=== PATIENT | female | born 1985 | race Caucasian/White ===

== ENCOUNTER 2016-11-11 19:54 | Emergency (ER) | payer MEDICAID ==
[2013-01-30 12:09] VITALS: BMI 69.7
[~2016-11-11 19:54] MED LIST: ABILIFY10 MG PO; CELEXA20 MG PO; CIPRO500 MG PO; HYDROCHLOROTHIA25 MG PO; KEFLEX500 MG PO; LOPRESSOR50 MG PO; NORCO 10/325 TA1 TA1 PO; ZESTRIL40 MG PO
[2016-11-11 21:01] LABS: BASOPHILS 0.1 % (0-2); EOSINOPHILS 2.7 % (0-7); HEMATOCRIT 35.3 % (36.0-48.0); HEMOGLOBIN 9.9 g/dL (12-16); IMMATURE GRANULOCYTES 0.2 % (0-5); LYMPHOCYTES 21.6 % (15-50); MCH 21.8 pg (26.0-34.0); MCV 77.6 fL (80.0-100.0); MEAN PLATELET VOLUME 10.9 fL (7.4-10.4); MONOCYTES 4.7 % (2-11); NEUTROPHILS 70.7 % (40-80); RBC 4.55 10x6/uL (4.00-5.40); WBC 8.6 10x3/uL (4.8-10.8)
[2016-11-11 21:03] LABS: PLATELET COUNT 243 10x3/uL (130-400)
[2016-11-11 21:28] LABS: ALKALINE PHOSPHATASE 136 U/L (46-116); ALT (SGPT) 17 U/L (10-68); BILIRUBIN - TOTAL 0.26 mg/dL (0.2-1.3); CALC OSMOLALITY 290 mosm/kg (275-300); CALCIUM 8.2 mg/dL (8.5-10.1); CARBON DIOXIDE 28.2 mmol/L (21.0-32.0); CHLORIDE - SERUM 105 mmol/L (98-107); CREATININE - SERUM 0.8 mg/dL (0.6-1.3); GLUCOSE 129 mg/dL (74-106); POTASSIUM - SERUM 3.6 mmol/L (3.5-5.1); PROTEIN - SERUM 7.4 g/dL (6.4-8.2); SODIUM 144 mmol/L (136-145); UREA NITROGEN 18 mg/dL (7-18); eGFR NON AFRICAN AMERICAN 87 mL/min (90-120)
== END 2016-11-11 21:05 | disposition home or self-care (01) ==
LOC: D.ER 19:54
PROVIDERS: Physician Assistant Medical
DX: L03.116 Cellulitis of left lower limb (principal); I83.228 Varicose veins of left lower extremity with both ulcer of other part of lower extremity and inflammation

== ENCOUNTER 2016-11-17 21:21 | Emergency (ER) | payer MEDICAID ==
[2013-01-30 12:09] VITALS: BMI 69.7
== END 2016-11-17 22:27 | disposition home or self-care (01) ==
LOC: D.ER 21:21
DX: I83.028 Varicose veins of left lower extremity with ulcer other part of lower leg (principal); L03.116 Cellulitis of left lower limb; I10 Essential (primary) hypertension; E11.9 Type 2 diabetes mellitus without complications

== ENCOUNTER → 2019-08-20 10:05 | Outpatient (CLI) | payer OTHER ==
[2013-01-30 12:09] VITALS: BMI 69.7
--- NOTE | 2019-08-22 08:48 | EC ---
PATIENT:NABILA BRIGHT DATE OF SERVICE: 08/20/19 SEX: F MEDICAL RECORD: [id number] DATE OF : 81 [facility] AGE OF PATIENT: 34 ADMISSION DATE: 08/20/19 REFERRING PHYSICIAN: INTERPRETING PHYSICIAN: ELOISA MCCLURE MD ECHOCARDIOGRAM REPORT ECHO CHARGES 4 ECHO COMPLETE Date: 08/20/19 CLINICAL DIAGNOSIS: PULMONARY HTN/CHF H/O HTN ECHOCARDIOGRAPHIC MEASUREMENTS (adult normal given) AC root (d.<3.7cm) 3.0 cm LV Septum d (<1.2 cm> 1.3 cm Valve Excursion 1.0 cm LV Septum (systole) 1.7 cm Left Atria (s.<4.0cm> 3.6 cm LVPW d(<1.2cm) 1.3 cm RV (d.<2.3cm) 3.9 cm LVPW (sytole) 1.6 cm LV diastole(<5.6CM) 6.4 cm MV E-F(>70mm/sec) cm LV systole 4.8 cm LVOT Diameter 2.3 cm MV exc.(>10mm) cm Est.ejection fraction (50-75%) % DOPPLER: LVIT cm/sec A 69.0 cm/sec E 93.0 cm/sec LA cm/sec RVSP 63.2 mmHg LVOT 110 cm/sec AOP1/2T m/s Asc. Ao 196 cm/sec RVOT 110 cm/sec RA cm/sec PA 137 cm/sec AV Gradient Peak 15.4 mmHg AV Mean 8.5 mmHg AV Area 2.0 cm MV Gradient Peak 5.6 mmHg MV Mean 2.1 mmHg MV Area cm COMMENTS: OP - HC Oracle Applications Analyst: Jayjay DESOUZA ANGELA Firmware Manager: 3 Dr. Tobias TAPE# PACS Pericardial Effusion N DATE OF SERVICE: Adequate 2D, color flow imaging, spectral Doppler, and M-Mode. Mild LVH. LV internal dimension is normal. Wall motion is normal. EF is greater than or equal to 55%. Aortic valve is tricuspid. No evidence of stenosis by Doppler interrogation. Left atrium is normal at 3.6 cm. Mitral valve shows no prolapse. Trace MR. Right-sided chambers are grossly normal. Trace to mild TR with color flow imaging. ECHOCARDIOGRAM REPORT [id number] NABILA BRIGHT TRANSINT:[id number] Voice Confirmation ID: [id number] DOCUMENT ID: [id number] ELOISA MCCLURE MD at 0848 CC: [id number] DICTATION DATE: 08/21/191534 MAINFRAME ANALYST: 08/21/19 2216 DEP CLI 08/20/19 [place] [id number] [place] [id number]
== END | disposition home or self-care (01) ==
LOC: D.HCCECHO 10:05
PROVIDERS: ATTEND Internal Medicine Interventional Cardiology
DX: I10 Essential (primary) hypertension (principal)

== ENCOUNTER 2020-09-07 12:50 | Inpatient (IN) | payer OTHER ==
[~2020-09-07] VITALS: Ht 160 cm; Wt 196.9 kg
[2020-09-07] MEDS ORDERED: PROAIR HFA8.5 G1 INH (13:00)
[2020-09-07] MEDS ORDERED: HYDROCODON-ACE1 EA10 PO (13:00)
[2020-09-07] MEDS ORDERED: ADVIL200 MG PO (13:00)
[2020-09-07 13:43] LABS: BASOPHILS 0.1 % (0-2); EOSINOPHILS 0.3 % (0-7); HEMATOCRIT 32.5 % (36.0-48.0); IMMATURE GRANULOCYTES 0.3 % (0-5); LYMPHOCYTE ABS# 0.74 10x3/uL (1.18-3.74); LYMPHOCYTES 6.6 % (15-50); MCH 25.2 pg (26.0-34.0); MCHC 27.7 g/dL (31.0-37.0); MONOCYTES 3.9 % (2-11); NEUTROPHIL ABS# 9.98 10x3/uL (1.56-6.13); NEUTROPHILS 88.8 % (40-80); RBC 3.57 10x6/uL (4.00-5.40); RDW 15.7 % (11.5-14.5); WBC 11.2 10x3/uL (4.8-10.8)
[2020-09-07 13:51] LABS: CALC OSMOLALITY 297 mosm/kg (275-300); CHLORIDE - SERUM 106 mmol/L (98-107); CREATININE - SERUM 2.4 mg/dL (0.6-1.3); GLUCOSE 138 mg/dL (74-106); POTASSIUM - SERUM 3.8 mmol/L (3.5-5.1); SODIUM 142 mmol/L (136-145); UREA NITROGEN 49 mg/dL (7-18); eGFR NON AFRICAN AMERICAN 24 mL/min (90-120)
[2020-09-07 13:56] LABS: PLATELET COUNT 182 10x3/uL (130-400)
[2020-09-07 14:08] LABS: ALBUMIN 2.7 g/dL (3.4-5.0); ALKALINE PHOSPHATASE 106 U/L (30-120); ALT (SGPT) 14 U/L (10-68); BILIRUBIN - TOTAL 0.24 mg/dL (0.2-1.3); CKMB 1.2 U/L (0.0-3.6); CREATINE KINASE 52 UL (21-215); PRO BNP 794 pg/mL (0-125); PROTEIN - SERUM 7.2 g/dL (6.4-8.2); TROPONIN-I < 0.017 ng/mL (0.000-0.060)
[2020-09-07 14:09] LABS: APTT 25.9 SECONDS (22.8-39.4); INR 1.13 (0.85-1.17); PROTIME 13.5 SECONDS (11.6-15.0)
[2020-09-07 14:17] LABS: SARS-CoV-2 ANTIGEN NEGATIVE- SARS-COV-2 (NEGATIVE)
[2020-09-07 15:24] LABS: BILIRUBIN NEGATIVE (NEGATIVE); KETONE NEGATIVE (NEGATIVE); NITRITE NEGATIVE (NEGATIVE); UROBILINOGEN NORMAL mg/dL (< 2)
[2020-09-07 15:26] LABS: WHITE CELLS - URINE 0-5 HPF (0-4)
[2020-09-07 15:27] LABS: BACTERIA MANY HPF (NONE SEEN); HCG URINE NEGATIVE (NEGATIVE)
[2020-09-07 19:18] LABS: CKMB 1.3 U/L (0.0-3.6); CREATINE KINASE 47 UL (21-215); TROPONIN-I < 0.017 ng/mL (0.000-0.060)
--- NOTE | 2020-09-07 19:20 | NUR ---
PT RECEIVED TO ROOM 2133 A&O SLOW TO ANSWER QUESTIONS,S EARCHES FOR RESPONSES AT TIMES, PER NURSE GIVING REPORT THIS IS CHRONIC FOR PT. PT REPORTS SHE LIVES WITH HER SISTER AND HAS HH. SHE HAS CELLULITIS TO LLE, WHICH IS WRAPPED. SHE REPORTS A PRODUCTIVE COUGH THAT SHE BELIVES HAS HAD BLOODY SPUTUM. SHE REQUESTS FOOD AND WATER. SANDWICH MEAL PROVIDED, NO ACUTE DISTRESS CELL PHONE AND CALL LIGHT IN REACH WILL CONTINUE TO MONITOR
[2020-09-07 19:34] VITALS: BP 99/55
[2020-09-08] VITALS: BP 109/49
[2020-09-08 01:41] LABS: CKMB 0.8 U/L (0.0-3.6); CREATINE KINASE 36 UL (21-215)
[2020-09-08 01:42] LABS: TROPONIN-I < 0.017 ng/mL (0.000-0.060)
--- NOTE | 2020-09-08 01:52 | NUR ---
ekg complete per orders and placed on chart, telemetry reports pt with SR 87 BBB. pt resting quietly appears asleep no distress noted will contnue to monitor COVID isolation (PUI) precautions in place
[2020-09-08 04:00] VITALS: BP 107/47
[2020-09-08 07:20] LABS: BASOPHILS 0.1 % (0-2); EOSINOPHILS 0.9 % (0-7); HEMATOCRIT 31.3 % (36.0-48.0); HEMOGLOBIN 8.6 g/dL (12-16); IMMATURE GRANULOCYTES 0.2 % (0-5); LYMPHOCYTE ABS# 0.97 10x3/uL (1.18-3.74); LYMPHOCYTES 11.8 % (15-50); MCH 25.1 pg (26.0-34.0); MCHC 27.5 g/dL (31.0-37.0); MCV 91.5 fL (80.0-100.0); MEAN PLATELET VOLUME 10.8 fL (7.4-10.4); MONOCYTES 4.4 % (2-11); NEUTROPHIL ABS# 6.79 10x3/uL (1.56-6.13); NEUTROPHILS 82.6 % (40-80); PLATELET COUNT 195 10x3/uL (130-400); RBC 3.42 10x6/uL (4.00-5.40); RDW 15.8 % (11.5-14.5)
[2020-09-08 07:31] LABS: WBC 8.2 10x3/uL (4.8-10.8)
[2020-09-08 07:43] LABS: ALBUMIN 2.6 g/dL (3.4-5.0); ANION GAP 9.6 mmol/L (8-16); BILIRUBIN - TOTAL 0.36 mg/dL (0.2-1.3); CALCIUM 8.1 mg/dL (8.5-10.1); CARBON DIOXIDE 29.2 mmol/L (21.0-32.0); CREATININE - SERUM 2.3 mg/dL (0.6-1.3); MAGNESIUM - SERUM 2.2 mg/dL (1.8-2.4); POTASSIUM - SERUM 3.8 mmol/L (3.5-5.1); PROTEIN - SERUM 7.2 g/dL (6.4-8.2)
[2020-09-08 08:12] VITALS: BP 105/54
[2020-09-08 08:14] LABS: CKMB 0.5 U/L (0.0-3.6); CREATINE KINASE 30 UL (21-215)
[2020-09-08 08:15] LABS: TROPONIN-I < 0.017 ng/mL (0.000-0.060)
[2020-09-08] MEDS ORDERED: LASIX80 MG PO (11:58)
[2020-09-08] MEDS ORDERED: GLIPIZIDE5 MG PO (11:58)
[2020-09-08] MEDS ORDERED: K-TAB10 MEQ PO (12:00)
[2020-09-08] MEDS ORDERED: LEXAPRO20 MG PO (12:01)
[2020-09-08] MEDS ORDERED: TRAZODONE HCL100 MG PO (12:01)
[2020-09-08] MEDS ORDERED: PEPCID AC20 MG PO (12:02)
[2020-09-08] MEDS ORDERED: ZYRTEC10 MG PO (12:03)
[2020-09-08 12:16] VITALS: BP 107/58
[2020-09-08 12:45] VITALS: BMI 76.8
--- NOTE | 2020-09-08 14:32 | NUR ---
INFORMED CONSTANTINO AND DR. CARBAJAL THAT PT SISTER BROUGHT A BAG OF MEDICATIONS. NURSE UPDATED MED LIST WHICH WAS NOT CURRENT OR CORRECT. SOME NEW ORDERS PUT IN AFTER.
[2020-09-08 14:49] VITALS: Ht 160 cm; Wt 196.9 kg
[2020-09-08 16:06] VITALS: BP 115/62
--- NOTE | 2020-09-08 17:02 | NUR ---
INSERTED SINGLETON CATHETER. COLLECTED URINE SAMPLE. UPDATED SISTER WHO IS POA. SISTER INSTRUCTS TO NOT LET PATIENT LEAVE OR BE RELEASED TO ANYONE BUT HER AND ONLY GIVE INFORMATION TO HER. NURSE WILL PASS THIS ON.
--- NOTE | 2020-09-08 17:05 | NUR ---
OT NOTE: PT REQUIRED CUES FOR TASK COMPLETION. PT COMPLETED BED MOB WITH MIN A. PT COMPLETED FACE AND HAND HYGIENE WITH MIN A AND EXTENDED TIME. [phone] THANK YOU,MARICRUZ MOY
[2020-09-08 17:08] LABS: BILIRUBIN NEGATIVE (NEGATIVE); KETONE NEGATIVE (NEGATIVE); NITRITE NEGATIVE (NEGATIVE); UROBILINOGEN NORMAL mg/dL (< 2)
--- NOTE | 2020-09-08 17:25 | NUR ---
I CALLED [facility] TO SEE ABOUT SINGLETON NATALI TO COME OUT THAT JUST ORDERED. SHE SAID TO REMOVE SINGLETON CATH AND [facility]ACE [place] [facility].
--- NOTE | 2020-09-08 18:25 | NUR ---
REMOVED SINGLETON THAT WAS PLACED EARLIER TODAY UNDER MANANGEMENT'S INSTRUCTION. 700 MEASURED URINE FROM SINGLETON SINCE INSERTION. 100 OUT IMEDIATELY AFTER INSERTION.
--- NOTE | 2020-09-08 19:00 | NUR ---
pt sitting on side of bed, awake alert denies any needs, PUI/COVID isolation contnues, video camera for safety in use. Will continue to monitor
[2020-09-08 20:00] VITALS: BP 138/83
--- NOTE | 2020-09-09 03:34 | NUR ---
dressing to LLE changed, small open blister like areas x3 noted, small approx dime sized open area appears as puncture wound to outside left calf noted, ppetroleum gauze cast padding and coban appplied no discharge or odor noted. pt tolerated well no issues reported will continue to monitor
[2020-09-09 04:00] VITALS: BP 137/73
[2020-09-09 07:25] LABS: ALBUMIN 2.7 g/dL (3.4-5.0); BILIRUBIN - TOTAL 0.27 mg/dL (0.2-1.3); CALCIUM 8.5 mg/dL (8.5-10.1); CARBON DIOXIDE 29.8 mmol/L (21.0-32.0); CREATININE - SERUM 2.1 mg/dL (0.6-1.3); MAGNESIUM - SERUM 2.5 mg/dL (1.8-2.4); POTASSIUM - SERUM 3.8 mmol/L (3.5-5.1); PROTEIN - SERUM 7.6 g/dL (6.4-8.2)
[2020-09-09 07:33] LABS: BASOPHILS 0.1 % (0-2); EOSINOPHILS 0.1 % (0-7); HEMATOCRIT 30.2 % (36.0-48.0); HEMOGLOBIN 8.4 g/dL (12-16); IMMATURE GRANULOCYTES 0.4 % (0-5); LYMPHOCYTE ABS# 1.52 10x3/uL (1.18-3.74); LYMPHOCYTES 16.9 % (15-50); MCH 25.1 pg (26.0-34.0); MCHC 27.8 g/dL (31.0-37.0); MCV 90.1 fL (80.0-100.0); MEAN PLATELET VOLUME 11.7 fL (7.4-10.4); MONOCYTES 5.4 % (2-11); NEUTROPHIL ABS# 6.91 10x3/uL (1.56-6.13); NEUTROPHILS 77.1 % (40-80); PLATELET COUNT 202 10x3/uL (130-400); RBC 3.35 10x6/uL (4.00-5.40); RDW 15.7 % (11.5-14.5)
--- NOTE | 2020-09-09 10:00 | NUR ---
PATIENT THREATENING TO LEAVE AMA. SISTER ON THE PHONE LISTENING AND ENCOURAGING PATIENT. NURSE EDUCATING PATIENT THOROUGHLY ON RISKS. PATIENT AT FIRST REFUSED MEDICATION BUT WITH ENCOURAGEMENT FROM SISTER DID TAKE MEDICINE. PATIENT REFUSED TELEMETRY. WILL CONTINUE TO MONITOR.
[2020-09-09 11:26] VITALS: BP 139/79
--- NOTE | 2020-09-09 14:15 | EC ---
PATIENT:NABILA BRIGHT DATE OF SERVICE: 09/07/20 SEX: F MEDICAL RECORD: [id number] DATE OF : 81 LOCATION:D.M2 D.213 AGE OF PATIENT: 35 ADMISSION DATE: 09/07/20 REFERRING PHYSICIAN: INTERPRETING PHYSICIAN: ELOISA MCCLURE MD ECHOCARDIOGRAM REPORT ECHO CHARGES 4 ECHO COMPLETE Date: 09/08/20 CLINICAL DIAGNOSIS: ACUTE CHF ECHOCARDIOGRAPHIC MEASUREMENTS (adult normal given) AC root (d.<3.7cm) 2.8 cm LV Septum d (<1.2 cm> 0.9 cm Valve Excursion 1.2 cm LV Septum (systole) 1.4 cm Left Atria (s.<4.0cm> 4.5 cm LVPW d(<1.2cm) 0.9 cm RV (d.<2.3cm) 4.4 cm LVPW (sytole) 1.3 cm LV diastole(<5.6CM) 6.2 cm MV E-F(>70mm/sec) cm LV systole 4.4 cm LVOT Diameter 1.8 cm MV exc.(>10mm) 0.9 cm Est.ejection fraction (50-75%) % DOPPLER: LVIT cm/sec A 26 cm/sec E 76 cm/sec LA cm/sec RVSP 33 mmHg LVOT 88 cm/sec AOP1/2T m/s Asc. Ao 137 cm/sec RVOT 83 cm/sec RA cm/sec PA 110 cm/sec AV Gradient Peak 7.5 mmHg AV Mean 3.9 mmHg AV Area 2.3 cm MV Gradient Peak 2.5 mmHg MV Mean 1.2 mmHg MV Area cm COMMENTS: Migratory Worker: Kelly WELLS Drapery Cutter: 3 Dr. Tobias TAPE# Pericardial Effusion N DATE OF SERVICE: Adequate 2D, color flow imaging, spectral Doppler, and M-Mode. FINDINGS: No LVH. LV internal dimensions are normal. Wall motion is normal. EF is greater than or equal to 55%. Aortic valve is tricuspid. No evidence of stenosis by Doppler interrogation. Left atrium dilated at 3.5 cm. Mitral valve shows no prolapse. Trace MR. Right-sided chambers are grossly normal. Trace TR. ECHOCARDIOGRAM REPORT [id number] NABILA BRIGHT TRANSINT:[id number] Voice Confirmation ID: [id number] DOCUMENT ID: [id number] ELOISA MCCLURE MD at 1415 CC: [id number] DICTATION DATE: 09/08/20 183 LAP MACHINE OPERATOR: 09/09/20 0231 ADM IN [place] [id number] [place] [id number]
--- NOTE | 2020-09-09 15:01 | NUR ---
PATIENT NOW COMPLIANT WITH MEDICATIONS AND CARE BUT CONTINUES TO REFUSE TELEMETRY. NURSE CONTINUING TO ENCOURAGE PATIENT TO ALLOW TELE TO BE PLACED WITH NO SUCESS. WILL CONTINUE TO MONITOR.
--- NOTE | 2020-09-09 16:27 | NUR ---
OT NOTE: PT COMPLETED SUPINE TO SIT WITH SBA. PT COMPLETED EOB SITTING WITH SPV. PT COMPLETED SIT TO STANDS WITH SBA-CGA. PT COMPLETED HAIR GROOMING WITH SETUP. PT COMPLETED BUE AROM EXS TOLERATED AT EOB. [phone] THANK YOU,MARICRUZ MOY
[2020-09-09 20:54] VITALS: BP 118/57
--- NOTE | 2020-09-10 00:06 | NUR ---
PT SITTING ON EDGE OF BED, COOPERATIVE WANTS TO GO HOME & BECOMES TEARFUL. ABLE TO ANSWER QUESTIONS APPROPRIATELY
--- NOTE | 2020-09-10 07:00 | NUR ---
PT SITTING ON SIDE OF BED. RESP EVEN AND UNLABORED. AAOX4. PT TEARFUL AND STATES SHE IS READY TO GO HOME. ATTEMPTED TO CONSOLE. CLIR. BED IN LOWEST POSITION. SIDE RAILS X2.
[2020-09-10 07:21] LABS: BASOPHILS 0.2 % (0-2); EOSINOPHILS 0.9 % (0-7); HEMOGLOBIN 9.7 g/dL (12-16); IMMATURE GRANULOCYTES 0.4 % (0-5); LYMPHOCYTE ABS# 2.54 10x3/uL (1.18-3.74); MCH 25.4 pg (26.0-34.0); MCHC 28.5 g/dL (31.0-37.0); MEAN PLATELET VOLUME 11.4 fL (7.4-10.4); MONOCYTES 6.8 % (2-11); NEUTROPHIL ABS# 9.15 10x3/uL (1.56-6.13); NEUTROPHILS 71.7 % (40-80); PLATELET COUNT 260 10x3/uL (130-400); RBC 3.82 10x6/uL (4.00-5.40); RDW 15.5 % (11.5-14.5); WBC 12.7 10x3/uL (4.8-10.8)
[2020-09-10 07:47] LABS: ALBUMIN 2.9 g/dL (3.4-5.0); ANION GAP 10.8 mmol/L (8-16); BILIRUBIN - TOTAL 0.28 mg/dL (0.2-1.3); CARBON DIOXIDE 28.8 mmol/L (21.0-32.0); CREATININE - SERUM 1.6 mg/dL (0.6-1.3); MAGNESIUM - SERUM 2.5 mg/dL (1.8-2.4); POTASSIUM - SERUM 3.6 mmol/L (3.5-5.1); PROTEIN - SERUM 7.8 g/dL (6.4-8.2)
--- NOTE | 2020-09-10 08:30 | NUR ---
PT REMOVED IV FROM UPPER ARM. NO BLEEDING NOTED AT SITE. PT STATES SHE WANTED IT OUT. REFUSED ANOTHER IV ACCESS. CONSTANTINO GUTIERREZ NOTIFIED.
[2020-09-10 09:06] VITALS: BP 136/79
[2020-09-10] MEDS ORDERED: AZITHROMYCIN500 MG PO (10:30)
[2020-09-10] MEDS ORDERED: TORSEMIDE20 MG PO (10:30)
[2020-09-10] MEDS ORDERED: PREDNISONE10 MG PO (10:31)
[2020-09-10] MEDS ORDERED: OMNICEF300 MG PO (10:31)
--- NOTE | 2020-09-10 12:05 | MORECARE ---
CASE MANAGEMENT DISCHARGE SUMMARY PATIENT: NABILA BRIGHT UNIT: [id number] ADM DATE: 09/07/20 AGE: 35 : 83 SEX: F ROOM/BED: D.2133 AUTHOR: KYLE TINOCO PHYSICIAN: REFERRING PHYSICIAN: CLARA CARBAJAL MD DATE OF SERVICE: 09/10/20 Case Management Discharge Planning Summary DCP REVIEW SUMMARY ANTICIPATED D/C DATE: 09/10/2020 EXPECTED LOS : 3 CASE STATUS: DCP Initiated INITIAL REVIEW: 09/10/2020 INITIAL REVIEWER: Marlene Lin FINAL DISCHARGE DISPOSITION: : FINAL REVIEWER: FINAL REVIEW DATE: DCP Focus Questions & Answers DCP Screen QUESTION: ANSWER High Risk Factors: : None Walking limitation: Patient stated self rated walking limitation present? : No Age: : 16 - 42 Prior living environment: : Lives with others Disability ranking: : Grade 3: Moderate disability DCP Evaluation QUESTION: ANSWER Patient's ability to cope with chronic illness : d. No chronic illness Would patient like to participate in any Care Coordination programs (if applicable): : Not applicable Mental health screen: : No mental health history DCP Re-evaluation QUESTION: ANSWER Would patient like to participate in any Care Coordination programs (if applicable): : Not applicable PATIENT: NABILA BRIGHT ENCOUNTER: [id number] MEDICAL RECORD#: [id number] ADMISSION DATE: 09/07/2020 DISCHARGE DATE: ATTENDING MD: CLARA GUERRA : AGE: 35 MARITAL STATUS: S DC PLAN ID: [id number] FACILITY: [facility] PRINTED ON: 09/10/20 12:05 CT All edits/amendments must be made on the electronic document DICTATION DATE: 09/10/20 1205 ACETYLENE BURNER: DM 09/10/20 1205 RPT#: [id number] DC DATE: STATUS: ADM IN [facility] [address] [place] [address] END OF REPORT
--- NOTE | 2020-09-10 12:17 | MORECARE ---
CASE MANAGEMENT DISCHARGE SUMMARY PATIENT: NABILA BRIGHT UNIT: [id number] ADM DATE: 09/07/20 AGE: 35 : 83 SEX: F ROOM/BED: D.2573 AUTHOR: KYLE TINOCO PHYSICIAN: REFERRING PHYSICIAN: CLARA CARBAJAL MD DATE OF SERVICE: 09/10/20 Case Management Discharge Planning Summary DCP REVIEW SUMMARY ANTICIPATED D/C DATE: 09/10/2020 EXPECTED LOS : 3 CASE STATUS: DCP Initiated INITIAL REVIEW: 09/10/2020 INITIAL REVIEWER: Marlene Lin FINAL DISCHARGE DISPOSITION: : FINAL REVIEWER: FINAL REVIEW DATE: DCP Focus Questions & Answers DCP Screen QUESTION: ANSWER High Risk Factors: : None Walking limitation: Patient stated self rated walking limitation present? : No Age: : 18 - 44 Prior living environment: : Lives with others Disability ranking: : Grade 3: Moderate disability DCP Evaluation QUESTION: ANSWER Patient and/or caregiver agree upon recommended discharge plan? : Yes Patient's current cognitive status: : *Oriented to person, place, situation, time and present Patient's ability to cope with chronic illness : d. No chronic illness Family / Caregiver's ability to cope with chronic illness: : a. Adequate (ability to meet patient's medical needs, ensures patient attends medical appts.) Functional screen assessment: : Can meet basic needs but may require referral for resources Family / Caregiver's ability to cope with chronic illness: : a. Adequate (ability to meet patient's medical needs, ensures patient attends medical appts.) Physical Status: : Partial care dependence Physical Status: : Mobility impaired Physical Status: : Incontinent Physical Status: : Compromised skin integrity Equipment needed for post hospitalization: : None Is there a likelihood that the patient will require additional services to return to the preadmission environment? : No Living Arrangements: : Home with others Partial Dependence, assistance required for: : Bathing Partial Dependence, assistance required for: : Ambulation / Mobility Results of this evaluation have been discussed with: : Patient Patient with capacity for self-care or can be cared for in same environment as prior to hospitalization? : Yes Baseline cognitive status: : *Oriented to person, place, situation, time and present Living arrangements comments: : Mic van - [phone] Physical environment modification needed / anticipated for discharge: : No Preadmission facility can/cannot provide post hospital level of care needs: : Can - at same level of care as preadmission Medication Management: : Patient states can afford medications Planned post hospital services available for patient? : Yes Pharmacy name(s): : [facility] Does Patient have transportation to get home and to follow-up medical appointments when discharged from the hospital? : Yes Would patient like to participate in any Care Coordination programs (if applicable): : Not applicable Does the patient have electricity at home? : Yes Does the patient have running water in their house? : Yes Equipment in use: : Other Equipment in use: : Home Oxygen with Nasal Cannula Other Equipment comments: : Portable oxygen Equipment agency name and contact information: : [facility] in [place] Mental health screen: : No mental health history Psychosocial status: : Adult with cognitive limitations Resources / Services in place: : Home health Resources / Services in place: : DME Contact information for resources in use: : [facility] and [facility] [place] for Aide DCP Re-evaluation QUESTION: ANSWER Would patient like to participate in any Care Coordination programs (if applicable): : Not applicable PATIENT: NABILA BRIGHT ENCOUNTER: [id number] MEDICAL RECORD#: [id number] ADMISSION DATE: 09/07/2020 DISCHARGE DATE: ATTENDING MD: CLARA GUERRA : AGE: 35 MARITAL STATUS: S DC PLAN ID: [id number] FACILITY: [facility] PRINTED ON: 09/10/20 12:17 CT All edits/amendments must be made on the electronic document DICTATION DATE: 09/10/201216 REAL ESTATE CLOSING COORDINATOR: CRUZ 09/10/201216 RPT#: [id number] DC DATE: STATUS: ADM IN [facility] [address] [place] [address] END OF REPORT
--- NOTE | 2020-09-10 12:30 | MORECARE ---
CASE MANAGEMENT DISCHARGE SUMMARY PATIENT: NABILA BRIGHT UNIT: [id number] ADM DATE: 09/07/20 AGE: 35 : 83 SEX: F ROOM/BED: D.2133 AUTHOR: KYLE TINOCO PHYSICIAN: REFERRING PHYSICIAN: CLARA CARBAJAL MD DATE OF SERVICE: 09/10/20 Case Management Discharge Planning Summary COMMENTS ENTERED DATE: 09/10/20 12:26 CT COMMENT TYPE: Discharge Planning REVIEWER: Marlene Lin Received discharge orders. met with patient in the room, she is alone. She states she lives with her sister in a one story home. Her PCP is Alka Pedroza at [facility] in [place]. She uses [facility]. She states [facility] in [place] sends an aide to her home to assist with ADL's M-F [phone]. She has [facility] to change Nasrin boots weekly to left lower ext. She states her sister will pick her up at discharge. No needs identified. I notified Craig with [facility] [place] and clinical faxed. DCP REVIEW SUMMARY ANTICIPATED D/C DATE: 09/10/2020 EXPECTED LOS : 3 CASE STATUS: DCP Initiated INITIAL REVIEW: 09/10/2020 INITIAL REVIEWER: Marlene Lin FINAL DISCHARGE DISPOSITION: : FINAL REVIEWER: FINAL REVIEW DATE: DCP Focus Questions & Answers DCP Screen QUESTION: ANSWER High Risk Factors: : None Walking limitation: Patient stated self rated walking limitation present? : No Age: : 18 - 44 Prior living environment: : Lives with others Disability ranking: : Grade 3: Moderate disability DCP Evaluation QUESTION: ANSWER Patient and/or caregiver agree upon recommended discharge plan? : Yes Patient's current cognitive status: : *Oriented to person, place, situation, time and present Patient's ability to cope with chronic illness : d. No chronic illness Family / Caregiver's ability to cope with chronic illness: : a. Adequate (ability to meet patient's medical needs, ensures patient attends medical appts.) Functional screen assessment: : Can meet basic needs but may require referral for resources Family / Caregiver's ability to cope with chronic illness: : a. Adequate (ability to meet patient's medical needs, ensures patient attends medical appts.) Physical Status: : Partial care dependence Physical Status: : Mobility impaired Physical Status: : Incontinent Physical Status: : Compromised skin integrity Equipment needed for post hospitalization: : None Is there a likelihood that the patient will require additional services to return to the preadmission environment? : No Living Arrangements: : Home with others Partial Dependence, assistance required for: : Bathing Partial Dependence, assistance required for: : Ambulation / Mobility Results of this evaluation have been discussed with: : Patient Patient with capacity for self-care or can be cared for in same environment as prior to hospitalization? : Yes Baseline cognitive status: : *Oriented to person, place, situation, time and present Living arrangements comments: : Mic van - [phone] Physical environment modification needed / anticipated for discharge: : No Preadmission facility can/cannot provide post hospital level of care needs: : Can - at same level of care as preadmission Medication Management: : Patient states can afford medications Planned post hospital services available for patient? : Yes Pharmacy name(s): : [facility] Does Patient have transportation to get home and to follow-up medical appointments when discharged from the hospital? : Yes Would patient like to participate in any Care Coordination programs (if applicable): : Not applicable Does the patient have electricity at home? : Yes Does the patient have running water in their house? : Yes Equipment in use: : Other Equipment in use: : Home Oxygen with Nasal Cannula Other Equipment comments: : Portable oxygen Equipment agency name and contact information: : [facility] Mental health screen: : No mental health history Psychosocial status: : Adult with cognitive limitations Resources / Services in place: : Home health Resources / Services in place: : DME Contact information for resources in use: : [facility] and [facility] for Aide DCP Re-evaluation QUESTION: ANSWER Would patient like to participate in any Care Coordination programs (if applicable): : Not applicable PATIENT: NABILA BRIGHT ENCOUNTER: [id number] MEDICAL RECORD#: [id number] ADMISSION DATE: 09/07/2020 DISCHARGE DATE: ATTENDING MD: CLARA GUERRA : AGE: 35 MARITAL STATUS: S DC PLAN ID: [id number] FACILITY: [facility] PRINTED ON: 09/10/20 12:29 CT All edits/amendments must be made on the electronic document DICTATION DATE: 09/10/201228 DIRECTOR OF MANUFACTURING: DM 09/10/20 1229 RPT#: [id number] DC DATE: STATUS: ADM IN [facility] [address] [place] [address] END OF REPORT
--- NOTE | 2020-09-10 13:15 | NUR ---
PT DC HOME WITH FAMILY MEMBER. DC INSTRUCTIONS PROVIDED VERBALLY AND WRITTEN. PT VERBALIZED UNDERSTANDING
--- NOTE | 2020-09-10 16:05 | NUR ---
OT NOTE: PT COMPLETED IN ROOM ADL MOB WITH SBA AND NO AE. PT COMPLETED EOB SITTING WITH SPV. PT COMOPLETED BUE AROM WITH FUNCTIONAL TASKS . [id number] THANK YOU,MARICRUZ MOY
--- NOTE | 2020-09-11 09:13 | MORECARE ---
CASE MANAGEMENT DISCHARGE SUMMARY PATIENT: NABILA BRIGHT UNIT: [id number] ADM DATE: 09/07/20 AGE: 35 : 83 SEX: F ROOM/BED: D.2133 AUTHOR: KYEL TINOCO PHYSICIAN: REFERRING PHYSICIAN: CLARA CARBAJAL MD DATE OF SERVICE: 09/11/20 Case Management Discharge Planning Summary COMMENTS ENTERED DATE: 09/10/20 12:26 CT COMMENT TYPE: Discharge Planning REVIEWER: Marlene Lin Received discharge orders. met with patient in the room, she is alone. She states she lives with her sister in a one story home. Her PCP is Alka Pedroza at [facility] in [place]. She uses [facility]. She states [facility] in [place] sends an aide to her home to assist with ADL's M-F [phone]. She has Care [facility] for [facility] to change Nasrin boots weekly to left lower ext. She states her sister will pick her up at discharge. No needs identified. I notified Craig with [facility] [place] and clinical faxed. DCP REVIEW SUMMARY ANTICIPATED D/C DATE: 09/10/2020 EXPECTED LOS : 3 CASE STATUS: DCP Complete INITIAL REVIEW: 09/10/2020 INITIAL REVIEWER: Marlene Lin FINAL DISCHARGE DISPOSITION: 06 : Discharged/Trans to Home [facility] [place] FINAL REVIEWER: Marlene Lin FINAL REVIEW DATE: 09/11/2020 DCP Focus Questions & Answers DCP Screen QUESTION: ANSWER High Risk Factors: : None Walking limitation: Patient stated self rated walking limitation present? : No Age: : 18 - 44 Prior living environment: : Lives with others Disability ranking: : Grade 3: Moderate disability DCP Evaluation QUESTION: ANSWER Patient's ability to cope with chronic illness : d. No chronic illness Patient's current cognitive status: : *Oriented to person, place, situation, time and present Family / Caregiver's ability to cope with chronic illness: : a. Adequate (ability to meet patient's medical needs, ensures patient attends medical appts.) Patient and/or caregiver agree upon recommended discharge plan? : Yes Physical Status: : Compromised skin integrity Physical Status: : Incontinent Physical Status: : Mobility impaired Physical Status: : Partial care dependence Family / Caregiver's ability to cope with chronic illness: : a. Adequate (ability to meet patient's medical needs, ensures patient attends medical appts.) Functional screen assessment: : Can meet basic needs but may require referral for resources Partial Dependence, assistance required for: : Ambulation / Mobility Partial Dependence, assistance required for: : Bathing Living Arrangements: : Home with others Is there a likelihood that the patient will require additional services to return to the preadmission environment? : No Equipment needed for post hospitalization: : None Baseline cognitive status: : *Oriented to person, place, situation, time and present Living arrangements comments: : Mic van [phone] Patient with capacity for self-care or can be cared for in same environment as prior to hospitalization? : Yes Results of this evaluation have been discussed with: : Patient Preadmission facility can/cannot provide post hospital level of care needs: : Can - at same level of care as preadmission Physical environment modification needed / anticipated for discharge: : No Medication Management: : Patient states can afford medications Pharmacy name(s): : [facility] Planned post hospital services available for patient? : Yes Does Patient have transportation to get home and to follow-up medical appointments when discharged from the hospital? : Yes Would patient like to participate in any Care Coordination programs (if applicable): : Not applicable Does the patient have electricity at home? : Yes Does the patient have running water in their house? : Yes Equipment in use: : Home Oxygen with Nasal Cannula Equipment in use: : Other Other Equipment comments: : Portable oxygen Equipment agency name and contact information: : [facility] Mental health screen: : No mental health history Psychosocial status: : Adult with cognitive limitations Resources [place] Services [place] place: : [facility] Resources / Services in place: : Home health Contact information for resources in use: : [facility] and [facility] Care [facility] for Aide DCP Re-evaluation QUESTION: ANSWER Would patient like to participate in any Care Coordination programs (if applicable): : Not applicable PATIENT: NABILA BRIGHT ENCOUNTER: [id number] MEDICAL RECORD#: [id number] ADMISSION DATE: 09/07/2020 DISCHARGE DATE: 09/10/2020 ATTENDING MD: CLARA GUERRA : AGE: 35 MARITAL STATUS: S DC PLAN ID: [id number] FACILITY: [facility] PRINTED ON: 09/11/20 9:12 CT All edits/amendments must be made on the electronic document DICTATION DATE: 09/11/20911 CRYSTALIZER: CRUZ 09/11/20911 RPT#: [id number] DC DATE:09/10/20 STATUS: DIS IN [facility] [address] [facility] [place] [address] END OF REPORT
--- NOTE | 2020-09-13 10:14 | MORECARE ---
CASE MANAGEMENT DISCHARGE SUMMARY PATIENT: NABILA BRIGHT UNIT: [id number] ADM DATE: 09/07/20 AGE: 35 : 83 SEX: F ROOM/BED: D.2133 AUTHOR: KYLE TINOCO PHYSICIAN: REFERRING PHYSICIAN: CLARA CARBAJAL MD DATE OF SERVICE: 09/13/20 Case Management Discharge Planning Summary COMMENTS ENTERED DATE: 09/10/20 12:26 CT COMMENT TYPE: Discharge Planning REVIEWER: Marlene Lin Received discharge orders. met with patient in the room, she is alone. She states she lives with her sister in a one story home. Her PCP is Alka Pedroza at [facility] in [place]. She uses [facility]. She states [facility] in [place] sends an aide to her home to assist with ADL's [phone]. She has [facility] to change Nasrin boots weekly to left lower ext. She states her sister will pick her up at discharge. No needs identified. I notified Craig with [facility] [place] and clinical faxed. DCP REVIEW SUMMARY ANTICIPATED D/C DATE: 09/10/2020 EXPECTED LOS : 3 CASE STATUS: DCP Complete INITIAL REVIEW: 09/10/2020 INITIAL REVIEWER: Marlene Lin FINAL DISCHARGE DISPOSITION: 06 : Discharged/Trans to Home Under [facility] of [facility] in Anticipation of Skilled Care FINAL REVIEWER: Marlene Lin FINAL REVIEW DATE: 09/11/2020 DCP Focus Questions & Answers DCP Screen QUESTION: ANSWER High Risk Factors: : None Walking limitation: Patient stated self rated walking limitation present? : No Age: : 16 - 42 Prior living environment: : Lives with others Disability ranking: : Grade 3: Moderate disability DCP Evaluation QUESTION: ANSWER Patient and/or caregiver agree upon recommended discharge plan? : Yes Family / Caregiver's ability to cope with chronic illness: : a. Adequate (ability to meet patient's medical needs, ensures patient attends medical appts.) Patient's current cognitive status: : *Oriented to person, place, situation, time and present Patient's ability to cope with chronic illness : d. No chronic illness Functional screen assessment: : Can meet basic needs but may require referral for resources Family / Caregiver's ability to cope with chronic illness: : a. Adequate (ability to meet patient's medical needs, ensures patient attends medical appts.) Physical Status: : Partial care dependence Physical Status: : Mobility impaired Physical Status: : Incontinent Physical Status: : Compromised skin integrity Equipment needed for post hospitalization: : None Is there a likelihood that the patient will require additional services to return to the preadmission environment? : No Living Arrangements: : Home with others Partial Dependence, assistance required for: : Bathing Partial Dependence, assistance required for: : Ambulation / Mobility Results of this evaluation have been discussed with: : Patient Patient with capacity for self-care or can be cared for in same environment as prior to hospitalization? : Yes Living arrangements comments: : Mic van - [phone] Baseline cognitive status: : *Oriented to person, place, situation, time and present Physical environment modification needed / anticipated for discharge: : No Preadmission facility can/cannot provide post hospital level of care needs: : Can - at same level of care as preadmission Medication Management: : Patient states can afford medications Planned post hospital services available for patient? : Yes Pharmacy name(s): : [facility] Does Patient have transportation to get home and to follow-up medical appointments when discharged from the hospital? : Yes Would patient like to participate in any Care Coordination programs (if applicable): : Not applicable Does the patient have electricity at home? : Yes Does the patient have running water in their house? : Yes Equipment in use: : Other Equipment in use: : Home Oxygen with Nasal Cannula Other Equipment comments: : Portable oxygen Equipment agency name and contact information: : [facility] Mental health screen: : No mental health history Psychosocial status: : Adult with cognitive limitations Resources / Services in place: : Home health Resources / Services in place: : [facility] [place] information for resources in use: : [facility] and [facility] for Aide DCP Re-evaluation QUESTION: ANSWER Would patient like to participate in any Care Coordination programs (if applicable): : Not applicable PATIENT: NABILA BRIGHT ENCOUNTER: [id number] MEDICAL RECORD#: [id number] ADMISSION DATE: 09/07/2020 DISCHARGE DATE: 09/10/2020 ATTENDING MD: CLARA GUERRA : AGE: 35 MARITAL STATUS: S DC PLAN ID: [id number] FACILITY: [facility] PRINTED ON: 09/13/20 10:14 CT All edits/amendments must be made on the electronic document DICTATION DATE: 09/13/20 1014 SPOT CLEANER: CRUZ 09/13/20 1014 RPT#: [id number] DC DATE:09/10/20 STATUS: DIS IN [facility] [address] [place] [address] END OF REPORT
== END 2020-09-10 13:15 | disposition home health service (06) | DRG 193 ==
LOC: D.ER 12:50 → D.M2 16:42 → D.ER 18:11 → D.M2 09-10 13:15
PROVIDERS: Family Medicine; Internal Medicine Nephrology; ADMIT Emergency Medicine; ATTEND Emergency Medicine
DX: J18.9 Pneumonia, unspecified organism (principal); I50.31 Acute diastolic (congestive) heart failure; N17.9 Acute kidney failure, unspecified; R04.2 Hemoptysis; J96.11 Chronic respiratory failure with hypoxia; B37.49 Other urogenital candidiasis; Z68.45 Body mass index [BMI] 70 or greater, adult; I13.0 Hypertensive heart and chronic kidney disease with heart failure and stage 1 through stage 4 chronic kidney disease, or unspecified chronic kidney disease; Z20.822 Contact with and (suspected) exposure to COVID-19; D64.9 Anemia, unspecified; G47.33 Obstructive sleep apnea (adult) (pediatric); I71.4 Abdominal aortic aneurysm, without rupture; E11.65 Type 2 diabetes mellitus with hyperglycemia; E11.22 Type 2 diabetes mellitus with diabetic chronic kidney disease; N18.9 Chronic kidney disease, unspecified; E66.9 Obesity, unspecified

== ENCOUNTER 2020-10-21 21:20 | Inpatient (IN) | payer OTHER ==
[~2020-10-21] VITALS: Ht 160 cm; Wt 212.4 kg
[~2020-10-21 21:20] MED LIST changes: +ADVIL200 MG PO; +AZITHROMYCIN500 MG PO; +GLIPIZIDE5 MG PO; +HYDROCODON-ACE1 EA10 PO; +K-TAB10 MEQ PO; +LASIX80 MG PO; +LEXAPRO20 MG PO; +OMNICEF300 MG PO; +PEPCID AC20 MG PO; +PREDNISONE10 MG PO; +PROAIR HFA8.5 G1 INH; +TORSEMIDE20 MG PO; +TRAZODONE HCL100 MG PO; +ZYRTEC10 MG PO
[2020-10-21 22:00] VITALS: BP 123/66
--- NOTE | 2020-10-21 22:17 | NUR ---
ANSWERED PT'S CALL LIGHT. PT HEAD OF BED RAISED TO LEVEL OF COMFORT. DENIES FURTHER NEEDS. CALL LIGHT IN REACH.
[2020-10-21 22:31] LABS: BASOPHILS 0.4 % (0-2); EOSINOPHILS 1.2 % (0-7); HEMATOCRIT 31.9 % (36.0-48.0); HEMOGLOBIN 9.5 g/dL (12-16); LYMPHOCYTES 8.1 % (15-50); MCH 24.4 pg (26.0-34.0); MCHC 29.8 g/dL (31.0-37.0); MCV 81.7 fL (80.0-100.0); MEAN PLATELET VOLUME 8.3 fL (7.4-10.4); MONOCYTES 6.2 % (2-11); NEUTROPHILS 84.1 % (40-80)
[2020-10-21 22:32] LABS: PLATELET COUNT 196 10x3/uL (130-400)
[2020-10-21 22:35] LABS: INR 1.2 (0.85-1.17); PROTIME 14.1 SECONDS (11.6-15.0)
[2020-10-21 22:36] LABS: APTT 28.9 SECONDS (22.8-39.4)
[2020-10-21 22:57] LABS: ALBUMIN 2.9 g/dL (3.4-5.0); ALKALINE PHOSPHATASE 114 U/L (30-120); ALT (SGPT) 12 U/L (10-68); BILIRUBIN - TOTAL 0.28 mg/dL (0.2-1.3); CALCIUM 8.1 mg/dL (8.5-10.1); CARBON DIOXIDE 32.1 mmol/L (21.0-32.0); CHLORIDE - SERUM 109 mmol/L (98-107); CKMB 1.7 U/L (0.0-3.6); CREATINE KINASE 36 UL (21-215); CREATININE - SERUM 1.9 mg/dL (0.6-1.3); POTASSIUM - SERUM 3.1 mmol/L (3.5-5.1); PRO BNP 1293 pg/mL (0-125); PROTEIN - SERUM 7.5 g/dL (6.4-8.2); SODIUM 148 mmol/L (136-145); UREA NITROGEN 43 mg/dL (7-18); eGFR NON AFRICAN AMERICAN 31 mL/min (90-120)
[2020-10-21 23:03] LABS: CALC OSMOLALITY 300 mosm/kg (275-300)
--- NOTE | 2020-10-21 23:04 | NUR ---
PT FSBS 30 EDP INFORMED, PT GIVEN ORANGE JUICE PUDDING AND CRACKERS. NO FURTHER ORDERS AT THIS TIME.
[2020-10-21 23:06] LABS: TROPONIN-I 0.107 ng/mL (0.000-0.060)
[2020-10-21 23:12] LABS: GLUCOSE 26 mg/dL (74-106)
--- NOTE | 2020-10-21 23:14 | NUR ---
PT AMBULATED TO RESTROOM X 2 NURSE ASSIST.
[2020-10-21 23:30] VITALS: BP 126/69
[2020-10-22] VITALS (22 sets, daily range): BP systolic 92–159; BP diastolic 44–111; BMI 82.1; BMI 82.0
--- NOTE | 2020-10-22 00:13 | NUR ---
PT FSBS RECHECK 50, EDP INFORMED. STATES WILL ADMIT PT AND START HYPOGLYCEMIA PROTOCAL ENTERED IN EMAR.
--- NOTE | 2020-10-22 00:36 | NUR ---
PT FSBS 57, 25ML OF D50 GIVEN PER EDP ORDER.
--- NOTE | 2020-10-22 01:23 | NUR ---
PT AMBULATED TO RESTROOM X 2 NURSE ASSIST
--- NOTE | 2020-10-22 01:47 | NUR ---
PT FSBS RECHECK 56, EDP INFORMED ANOTHER 25ML OF D50 GIVEN PER ORDER. SEE EMAR.
[2020-10-22 01:56] LABS: CKMB 1.8 U/L (0.0-3.6); CREATINE KINASE 36 UL (21-215)
[2020-10-22 01:57] LABS: TROPONIN-I 0.111 ng/mL (0.000-0.060)
--- NOTE | 2020-10-22 01:57 | NUR ---
D5 1/2 NS RATE CHANGE FROM 100ML/HR TO 150ML/HR PER EPD.
--- NOTE | 2020-10-22 02:06 | NUR ---
PT FSBS RECHECK 67 EDP INFORMED, VERBAL ORDERS TO GO AHEAD AND GIVE ANOTHER 25ML OF D50 AND RECHECK FSBS IN 15 MIN.
[2020-10-22 02:26] LABS: % SATURATION 4 % (15-55); IRON 18 ug/dl (35-150); TOTAL IRON BIND CAPACITY 381 ug/dl (260-445); UNSAT IRON BIND CAPACITY 363 ug/dl (150-375)
--- NOTE | 2020-10-22 02:50 | NUR ---
ORDERED SANDOSTATIN NOT IN PYXIS IN ER. EDP INFORMED, STATES OKAY TO START WHEN PT GETS TO ICU.
[2020-10-22 02:55] LABS: MAGNESIUM - SERUM 2.4 mg/dL (1.8-2.4); THYROID STIMULATING HORMONE 1.75 uIU/mL (0.36-3.74)
[2020-10-22 03:35] LABS: BILIRUBIN NEGATIVE (NEGATIVE); KETONE NEGATIVE (NEGATIVE); NITRITE NEGATIVE (NEGATIVE); UROBILINOGEN NORMAL mg/dL (< 2)
[2020-10-22 07:25] LABS: CKMB 1.6 U/L (0.0-3.6); CREATINE KINASE 33 UL (21-215); TROPONIN-I 0.081 ng/mL (0.000-0.060)
[2020-10-22 12:20] LABS: ANION GAP 11.4 mmol/L (8-16); CALCIUM 8.2 mg/dL (8.5-10.1); CARBON DIOXIDE 29.8 mmol/L (21.0-32.0); CREATININE - SERUM 1.9 mg/dL (0.6-1.3); POTASSIUM - SERUM 4.2 mmol/L (3.5-5.1)
[2020-10-22 12:37] LABS: BASOPHILS 0.4 % (0-2); EOSINOPHILS 0 % (0-7); HEMOGLOBIN 9.7 g/dL (12-16); LYMPHOCYTES 5.4 % (15-50); MCH 24.2 pg (26.0-34.0); MCHC 29.3 g/dL (31.0-37.0); MCV 82.7 fL (80.0-100.0); MEAN PLATELET VOLUME 8.7 fL (7.4-10.4); MONOCYTES 0.8 % (2-11); NEUTROPHILS 93.4 % (40-80); PLATELET COUNT 180 10x3/uL (130-400); RBC 3.99 10x6/uL (4.00-5.40); WBC 9.7 10x3/uL (4.8-10.8)
[2020-10-22 13:01] LABS: CKMB 1.4 U/L (0.0-3.6); CREATINE KINASE 35 UL (21-215)
[2020-10-23] VITALS (14 sets, daily range): BP systolic 102–125; BP diastolic 47–70
[2020-10-23 05:11] LABS: BASOPHILS 0.2 % (0-2); EOSINOPHILS 0 % (0-7); HEMATOCRIT 31.3 % (36.0-48.0); HEMOGLOBIN 9.2 g/dL (12-16); LYMPHOCYTES 10.1 % (15-50); MCH 24.1 pg (26.0-34.0); MCHC 29.3 g/dL (31.0-37.0); MCV 82.3 fL (80.0-100.0); MEAN PLATELET VOLUME 8.9 fL (7.4-10.4); MONOCYTES 6.8 % (2-11); NEUTROPHILS 82.9 % (40-80); PLATELET COUNT 199 10x3/uL (130-400); RDW 18.2 % (11.5-14.5); WBC 9.6 10x3/uL (4.8-10.8)
[2020-10-23 05:16] LABS: APTT 27.9 SECONDS (22.8-39.4); INR 1.37 (0.85-1.17); PROTIME 15.6 SECONDS (11.6-15.0)
[2020-10-23 05:32] LABS: ALBUMIN 2.8 g/dL (3.4-5.0); ANION GAP 8.1 mmol/L (8-16); BILIRUBIN - TOTAL 0.19 mg/dL (0.2-1.3); CALCIUM 8.2 mg/dL (8.5-10.1); CARBON DIOXIDE 32.1 mmol/L (21.0-32.0); CREATININE - SERUM 1.9 mg/dL (0.6-1.3); POTASSIUM - SERUM 4.2 mmol/L (3.5-5.1)
--- NOTE | 2020-10-23 13:09 | NUR ---
1100-DR ARAGON AT BEDSIDE AND SPOKE WITH PT-REGARDING STATUS AND COURSE OF TREATMENT-ENCOURAGED TO BRING IN TRILOGY BIPAP-
--- NOTE | 2020-10-23 13:46 | NUR ---
report given to sukhjinder acevedon-transferred via bed-placed to 2l commander police reserves-pt alert and easily verbal
--- NOTE | 2020-10-23 14:00 | NUR ---
RECEIVED TO ROOM 2224 VIA BED FROM ICU. A/O X3. UP TO BSC WITH ONE PERSON MIN ASSIST TO VOID. HAD MODERAT AMOUNT OF RUNNY LIGHT BROWN STOOL. SKIN CARE PER STAFF. REPOSITIONED IN BED FOR COMFORT.
--- NOTE | 2020-10-23 16:00 | NUR ---
UP TO BSC TO VOID. THEN TO SHOWER WITH SET UP ASSIST. DENIES NEEDS.
--- NOTE | 2020-10-23 17:00 | NUR ---
FSBS 96. NO COVERAGE REQUIRED. SUPPER SERVED IN ROOM. NO CHANGES NOTED.
[2020-10-24] VITALS: BP 98/56
[2020-10-24 04:00] VITALS: BP 104/47
--- NOTE | 2020-10-24 08:27 | NUR ---
AWAKE AND ALERT. ORIENTED X3. NO C/O AT THIS TIME. LUNGS ARE CLEAR BILATERALLY, NO COUGH NOTED. SKIN IS INTACT WITHOUT REDNESS EXCEPT IN ALANA AREA WHICH IS TREATED WITH NYSTATIN POWDER. SL TO RIGHT UPPER SHOULDER IS PATENT WITHOUT REDNESS AT INSERTION SITE. DENIES NEEDS.
[2020-10-24 08:50] VITALS: BP 117/59
--- NOTE | 2020-10-24 09:00 | NUR ---
ATE MOST OF BREAKFAST. TOOK AM MEDS WITHOUT DIFFICULTY. DENIES NEEDS.
--- NOTE | 2020-10-24 10:00 | NUR ---
UP TO CHIAR AT BEDSIDE MIN ASSSIST OF ONE. DENIES NEEDS.
[2020-10-24 12:13] LABS: BASOPHILS 0.7 % (0-2); EOSINOPHILS 1.9 % (0-7); HEMATOCRIT 31.3 % (36.0-48.0); HEMOGLOBIN 9.4 g/dL (12-16); LYMPHOCYTES 22.9 % (15-50); MCH 24.3 pg (26.0-34.0); MCHC 29.8 g/dL (31.0-37.0); MCV 81.3 fL (80.0-100.0); MEAN PLATELET VOLUME 8.3 fL (7.4-10.4); NEUTROPHILS 67.5 % (40-80); PLATELET COUNT 200 10x3/uL (130-400); RBC 3.85 10x6/uL (4.00-5.40); RDW 18.3 % (11.5-14.5); WBC 7.6 10x3/uL (4.8-10.8)
[2020-10-24 12:23] LABS: ANION GAP 7.5 mmol/L (8-16); CALCIUM 8.2 mg/dL (8.5-10.1); CARBON DIOXIDE 30.6 mmol/L (21.0-32.0); CREATININE - SERUM 1.7 mg/dL (0.6-1.3); POTASSIUM - SERUM 4.1 mmol/L (3.5-5.1)
[2020-10-24 12:29] LABS: ALBUMIN 2.9 g/dL (3.4-5.0); BILIRUBIN - TOTAL 0.26 mg/dL (0.2-1.3)
--- NOTE | 2020-10-24 14:50 | EC ---
PATIENT:NABILA BRIGHT DATE OF SERVICE: 10/22/20 SEX: F MEDICAL RECORD: [id number] DATE OF : [birth year] LOCATION:[facility] AGE OF PATIENT: 35 ADMISSION DATE: 10/22/20 REFERRING PHYSICIAN: INTERPRETING PHYSICIAN: ABBY DOUGLAS MD ECHOCARDIOGRAM REPORT ECHO CHARGES 5 ECHO LIMITED Date: 10/22/20 CLINICAL DIAGNOSIS: ELEVATED TROP ECHOCARDIOGRAPHIC MEASUREMENTS (adult normal given) AC root (d.<3.7cm) 0 cm LV Septum d (<1.2 cm> 0 cm Valve Excursion cm LV Septum (systole) 0 cm Left Atria (s.<4.0cm> 0 cm LVPW d(<1.2cm) 0 cm RV (d.<2.3cm) 0 cm LVPW (sytole) 0 cm LV diastole(<5.6CM) 0 cm MV E-F(>70mm/sec) 0 cm LV systole 0 cm LVOT Diameter 00 cm MV exc.(>10mm) 0 cm Est.ejection fraction (50-75%) % DOPPLER: LVIT cm/sec A 0 cm/sec E 0 cm/sec LA 0 cm/sec RVSP 36 mmHg LVOT 0 cm/sec AOP1/2T m/s Asc. Ao 0 cm/sec RVOT 0 cm/sec RA 0 cm/sec PA 0 cm/sec AV Gradient Peak 0 mmHg AV Mean 0 mmHg AV Area 0 cm MV Gradient Peak mmHg MV Mean 0 mmHg MV Area 0 cm COMMENTS: Cafe Server: Kelly WELLS Director Of Strategic Sales: 5 Dr. Douglas TAPE# Pericardial Effusion N DATE OF SERVICE: INTERPRETATION: Technically difficult and limited study, overall normal left ventricular chamber size and contractile function with ejection fraction of 55%. Left atrium appears normal. Right atrium and ventricular chamber is not well visualized. Aortic valve not well visualized. No aortic regurgitation. Mitral valve appears normal. No mitral regurgitation. Tricuspid valve not visualized. Pulmonic valve not visualized. No pericardial effusion visualized. IMPRESSION: Technically difficult and limited study, overall normal left ECHOCARDIOGRAM REPORT [id number] NABILA BRIGHT ventricular chamber size and contractile function with ejection fraction of 55%. TRANSINT:[id number] Voice Confirmation ID: [id number] DOCUMENT ID: [id number] ABBY DOUGLAS MD at 1450 CC: [id number] DICTATION DATE: 10/23/201749 CIGARETTE EXAMINER: 10/23/201946 ADM IN [facility] [address] [id number]
--- NOTE | 2020-10-24 19:22 | NUR ---
ATE ALL OF SUPPER. FSBS WNL NOT REQUIRED COVERAGE. NO CHANGES NOTED. DENIES NEEDS.
--- NOTE | 2020-10-24 22:00 | NUR ---
PIV TO RIGHT SHOULDER TENDER, RED. RESITED TO LEFT FOREARM.
--- NOTE | 2020-10-25 00:39 | NUR ---
PATIENT DESATTING ON TRELEGY. RESPIRATORY SWITCHED TO NC TO REOXYGENATE, THEN SWITCHED BACK TO TRELEGY. MAINTAINING SATS ON TRELEGY CURRENTLY. WILL CONTINUE TO MONITOR.
--- NOTE | 2020-10-25 03:37 | NUR ---
PATIENT UNABLE TO MAINTAIN OXYGEN LEVEL ON TRELEGY. ASSESSED BY RT. SWITCHED TO NC AT 6L FOR REMAINDER OF NIGHT.
[2020-10-25 06:49] LABS: BASOPHILS 0.9 % (0-2); EOSINOPHILS 2.8 % (0-7); HEMATOCRIT 30.6 % (36.0-48.0); HEMOGLOBIN 9.3 g/dL (12-16); LYMPHOCYTES 20.3 % (15-50); MCH 24.6 pg (26.0-34.0); MCHC 30.3 g/dL (31.0-37.0); MCV 81.2 fL (80.0-100.0); MEAN PLATELET VOLUME 8.4 fL (7.4-10.4); MONOCYTES 5.8 % (2-11); NEUTROPHILS 70.2 % (40-80); PLATELET COUNT 176 10x3/uL (130-400); RBC 3.77 10x6/uL (4.00-5.40); RDW 17.7 % (11.5-14.5); WBC 7.2 10x3/uL (4.8-10.8)
[2020-10-25 06:59] LABS: ALBUMIN 2.9 g/dL (3.4-5.0); ANION GAP 4.6 mmol/L (8-16); BILIRUBIN - TOTAL 0.35 mg/dL (0.2-1.3); CALCIUM 8.6 mg/dL (8.5-10.1); CARBON DIOXIDE 33.5 mmol/L (21.0-32.0); CREATININE - SERUM 1.4 mg/dL (0.6-1.3); MAGNESIUM - SERUM 3.1 mg/dL (1.8-2.4); POTASSIUM - SERUM 4.1 mmol/L (3.5-5.1); PROTEIN - SERUM 7.1 g/dL (6.4-8.2)
--- NOTE | 2020-10-25 10:31 | NUR ---
walked on 3 liters 20 used walker without walker wobblies had to stop 3 times to rest and catch her breath with walker cga
--- NOTE | 2020-10-25 14:48 | NUR ---
PT SITTING UP IN CHAIR, DRESSED HERSELF, REMOVED THE TELE UNIT, AND HAS STATED A COUPLE TIMES THAT SHE WANTS TO GO HOME, EXPLAINED TO PT THAT THERE WERE NO DISCARGE ORDERS YET, PT BECAME VERY TEARFUL AND SAID THAT SHE MISSES HER DOG AND SISTER AND JUST WANTS TO GO HOME, PT STATES HER SISTER CAN'T DRIVE AFTER DARK. PT STATES SHE IS HUNGRY AND THIRSTY, OFFERED WATER BUT PT REFUSED, STATES SHE WANTED A DIET SODA. PT REQUEST MET.
--- NOTE | 2020-10-25 14:49 | NUR ---
Nutrition follow-up: Pt walking with PT at time of RD visit. Diet order: Consistent CHO PO intake 100% of meals Labs reviewed; glucose under excellent control Wt: 468# PO intake good at this time. RDN follow-up: 11/01/20
[2020-10-25 16:06] VITALS: Ht 160 cm; Wt 212.4 kg
[2020-10-25 20:00] VITALS: BP 138/52
[2020-10-26] VITALS: BP 130/67
[2020-10-26 04:00] VITALS: BP 114/53
[2020-10-26 06:35] LABS: BASOPHILS 0.6 % (0-2); EOSINOPHILS 2.9 % (0-7); HEMATOCRIT 29.2 % (36.0-48.0); HEMOGLOBIN 8.8 g/dL (12-16); LYMPHOCYTES 19.9 % (15-50); MCH 24.6 pg (26.0-34.0); MCV 81.9 fL (80.0-100.0); MEAN PLATELET VOLUME 7.9 fL (7.4-10.4); MONOCYTES 6.5 % (2-11); NEUTROPHILS 70.1 % (40-80); PLATELET COUNT 152 10x3/uL (130-400); RBC 3.57 10x6/uL (4.00-5.40); RDW 17.3 % (11.5-14.5); WBC 6.4 10x3/uL (4.8-10.8)
[2020-10-26 07:04] LABS: ALBUMIN 2.7 g/dL (3.4-5.0); ANION GAP 5.7 mmol/L (8-16); BILIRUBIN - TOTAL 0.32 mg/dL (0.2-1.3); CALCIUM 8.3 mg/dL (8.5-10.1); CARBON DIOXIDE 34.4 mmol/L (21.0-32.0); CREATININE - SERUM 1.2 mg/dL (0.6-1.3); MAGNESIUM - SERUM 2.7 mg/dL (1.8-2.4); POTASSIUM - SERUM 4.1 mmol/L (3.5-5.1); PROTEIN - SERUM 6.6 g/dL (6.4-8.2)
--- NOTE | 2020-10-26 08:02 | NUR ---
ALERT AND ORIENTED. ASSESSMENT COMPLETE. DENIES NEEDS. BED LOW. CALL CARRENO AND PERSONAL ITEMS IN REACH. WILL CONTINUE TO MONITOR.
[2020-10-26 08:23] VITALS: BP 128/73
[2020-10-26] MEDS ORDERED: LISINOPRIL-HCT1 EAC4 PO (08:59)
--- NOTE | 2020-10-26 10:20 | NUR ---
WALKED 250 CGA WITH WALKER STOPPED 4 TIMES TO REST
--- NOTE | 2020-10-26 10:29 | NUR ---
IN REFERENCE TO MD NOTE YESTERDAY, PATIENT HAS BEEN MADE AWARE BY NURSING AND RT THAT NEEDS TO BE ON TRILOGY DURING DAY, WELL AT NIGHT. PATIENT REFUSES TO USE TRILOGY DURING DAY, DESPITE BEING AWARE OF BLOOD GASES.
[2020-10-26 11:27] VITALS: BP 124/70
[2020-10-26 11:53] LABS: BILIRUBIN NEGATIVE (NEGATIVE); KETONE NEGATIVE (NEGATIVE); NITRITE NEGATIVE (NEGATIVE); UROBILINOGEN NORMAL mg/dL (< 2)
[2020-10-26 11:55] LABS: WHITE CELLS - URINE RARE HPF (0-4)
[2020-10-26 11:56] LABS: BACTERIA FEW HPF (NONE SEEN); SQUAMOUS EPITHELIAL RARE HPF (0-4)
--- NOTE | 2020-10-26 12:23 | NUR ---
UNNA BOOTS TO PATIENTS LEFT LEG PER ORDER AND WRAPPED WITH KERLIX. KEREN WRAPS TO RIGHT LEFT PER ORDER. BED IN SLIGHT TRENDELENBERG WITH HOB AT 20 DEGREES PER ORDER. RIGHT LEG ELEVATED TO 2 PILLOWS. LEFT LEG ELEVATED ON 1 PILLOW. LEGS ABOVE HEART PER ORDER. IV INFILTRATED TO BERNARD. REMOVED WITH TIP INTACT.
--- NOTE | 2020-10-26 12:32 | NUR ---
SPOKE WITH OCTAVIO VANN ABOUT IV OUT AND POSSIBILITY OF CENTRAL LINE. ORDERS GIVEN TO CHANGE IRON TO PO AND STATES LEAVE IV OUT FOR NOW.
[2020-10-26] MEDS ORDERED: FERROUS SULFAT325 MG PO (14:24)
[2020-10-26] MEDS ORDERED: NYSTATIN1 PWD TOPICAL (14:24)
[2020-10-26] MEDS ORDERED: METOPROLOL TART50 MG PO (14:24)
[2020-10-26] MEDS ORDERED: Unna-Flex TOPICAL (14:25)
--- NOTE | 2020-10-26 15:25 | NUR ---
DC EDUCATION PROVIDED BOTH WRITTEN AND VERBAL. VERBALIZED UNDERSTANDING. DENIES FURTHER QUESTIONS. RX FOR UNNA FLEX PROVIDED TO PATIENT. DENIES NEEDS. PATIENT DC HOME WITH SISTER WITH ALL BELONGINGS.
--- NOTE | 2020-10-26 15:27 | NUR ---
TRANSPORT CALLED FOR PATIENT.
--- NOTE | 2020-10-26 16:48 | NUR ---
OT NOTE: PT PERFORMED IN ROOM MOBILITY WITH USE OF CANE AND GOOD SAFETY; PERFORMED TOILETING WITH SPV; REQUIRED REST BREAK FOLLOWING TOILETING (WITH USE OF 02 AT 3L). AFTER REST BREAK, PT AMB TO SINK TO PERFORM SINK HYGIENE WITH SPV. ELSA PENN, OTR/L [phone]
--- NOTE | 2020-10-26 17:38 | NUR ---
OT NOTE: PT COMPLETED EOB SITTING WITH SPV. PT COMPLETED ADL MOB IN ROOM WITH SPV. PT COMPLETED HAIR GROOMING WITH MOD I. PT COMPLETED DRESSING TASKS WITH SPV-MOD I. PT COMPLETED HYGIENE TASKS AT SINK LEVEL WITH SPV. [phone] KAYLIN COUGHLIN COTA
== END 2020-10-26 16:21 | disposition home or self-care (01) | DRG 280 ==
LOC: D.ER 21:20 → D.MS 10-22 02:05 → D.ICU 10-22 02:05 → D.MS 10-23 13:51
PROVIDERS: Emergency Medicine; Internal Medicine; Student in an Organized Health Care Education/Training Program; ADMIT Family Medicine; ATTEND Family Medicine
PROC: 5A09357 Assistance with Respiratory Ventilation, Less than 24 Consecutive Hours, Continuous Positive Airway Pressure (ICD-10-PCS; principal; 2020-10-23)
DX: I21.A1 Myocardial infarction type 2 (principal); J96.21 Acute and chronic respiratory failure with hypoxia; N17.9 Acute kidney failure, unspecified; E87.0 Hyperosmolality and hypernatremia; Z68.45 Body mass index [BMI] 70 or greater, adult; I13.0 Hypertensive heart and chronic kidney disease with heart failure and stage 1 through stage 4 chronic kidney disease, or unspecified chronic kidney disease; L97.921 Non-pressure chronic ulcer of unspecified part of left lower leg limited to breakdown of skin; N39.0 Urinary tract infection, site not specified; E11.649 Type 2 diabetes mellitus with hypoglycemia without coma; E87.6 Hypokalemia; D50.9 Iron deficiency anemia, unspecified; G47.33 Obstructive sleep apnea (adult) (pediatric); I71.4 Abdominal aortic aneurysm, without rupture; E66.01 Morbid (severe) obesity due to excess calories; E11.22 Type 2 diabetes mellitus with diabetic chronic kidney disease; N18.9 Chronic kidney disease, unspecified; I50.9 Heart failure, unspecified; I83.029 Varicose veins of left lower extremity with ulcer of unspecified site

== ENCOUNTER 2020-11-04 20:13 | Inpatient (IN) | payer OTHER ==
[2020-11-04] VITALS (8 sets, daily range): BP systolic 86–102; BP diastolic 30–54
[~2020-11-04] VITALS: Ht 162.6 cm; Wt 210.9 kg
[~2020-11-04 20:13] MED LIST changes: +FERROUS SULFAT325 MG PO; +LISINOPRIL-HCT1 EAC4 PO; +METOPROLOL TART50 MG PO; +NYSTATIN1 PWD TOPICAL; +Unna-Flex TOPICAL
--- NOTE | 2020-11-04 21:50 | NUR ---
RT AT BEDSIDE TO PLACE PT ON BIPAP.
[2020-11-04 21:58] LABS: BASOPHILS 0.9 % (0-2); EOSINOPHILS 1.4 % (0-7); HEMATOCRIT 30.2 % (36.0-48.0); HEMOGLOBIN 8.9 g/dL (12-16); LYMPHOCYTES 14.8 % (15-50); MCH 24.3 pg (26.0-34.0); MCHC 29.4 g/dL (31.0-37.0); MCV 82.8 fL (80.0-100.0); MEAN PLATELET VOLUME 9.5 fL (7.4-10.4); MONOCYTES 6.5 % (2-11); NEUTROPHILS 76.4 % (40-80); RBC 3.65 10x6/uL (4.00-5.40); RDW 18.9 % (11.5-14.5); WBC 10.7 10x3/uL (4.8-10.8)
[2020-11-04 21:59] LABS: PLATELET COUNT 204 10x3/uL (130-400)
[2020-11-04 22:05] LABS: ANION GAP 12.1 mmol/L (8-16); CARBON DIOXIDE 32.7 mmol/L (21.0-32.0); CREATININE - SERUM 3.3 mg/dL (0.6-1.3); POTASSIUM - SERUM 3.8 mmol/L (3.5-5.1)
[2020-11-04 22:29] LABS: ALBUMIN 2.8 g/dL (3.4-5.0); BILIRUBIN - TOTAL 0.3 mg/dL (0.2-1.3); PROTEIN - SERUM 6.9 g/dL (6.4-8.2)
[2020-11-04 22:32] LABS: TROPONIN-I 0.106 ng/mL (0.000-0.060)
--- NOTE | 2020-11-04 22:37 | NUR ---
ATTEMPTED TO DO PT'S MED REC, PT STATES SHE DOES NOT KNOW WHAT ALL MEDICATIONS SHE TAKES.
[2020-11-05] VITALS (29 sets, daily range): BP systolic 68–132; BP diastolic 33–81; Ht 162.6 cm; Wt 210.9 kg
[2020-11-05 05:20] LABS: BASOPHILS 0.8 % (0-2); LYMPHOCYTES 18.5 % (15-50); MCH 24.2 pg (26.0-34.0); MCHC 29.1 g/dL (31.0-37.0); MCV 83.1 fL (80.0-100.0); MEAN PLATELET VOLUME 9.7 fL (7.4-10.4); MONOCYTES 6.4 % (2-11); NEUTROPHILS 72.3 % (40-80); PLATELET COUNT 199 10x3/uL (130-400); RBC 3.73 10x6/uL (4.00-5.40); RDW 18.8 % (11.5-14.5)
[2020-11-05 05:39] LABS: APTT 31.1 SECONDS (22.8-39.4); INR 1.29 (0.85-1.17); PROTIME 14.9 SECONDS (11.6-15.0)
[2020-11-05 05:57] LABS: ALBUMIN 2.8 g/dL (3.4-5.0); ALKALINE PHOSPHATASE 90 U/L (30-120); ALT (SGPT) 12 U/L (10-68); CALC OSMOLALITY 306 mosm/kg (275-300); CALCIUM 7.9 mg/dL (8.5-10.1); CARBON DIOXIDE 31.6 mmol/L (21.0-32.0); CHLORIDE - SERUM 106 mmol/L (98-107); CKMB 0.9 U/L (0.0-3.6); CREATINE KINASE 54 UL (21-215); CREATININE - SERUM 3.6 mg/dL (0.6-1.3); GLUCOSE 99 mg/dL (74-106); MAGNESIUM - SERUM 2.4 mg/dL (1.8-2.4); POTASSIUM - SERUM 3.8 mmol/L (3.5-5.1); PROTEIN - SERUM 6.9 g/dL (6.4-8.2); SODIUM 144 mmol/L (136-145); UREA NITROGEN 69 mg/dL (7-18); eGFR NON AFRICAN AMERICAN 15 mL/min (90-120)
[2020-11-05 06:06] LABS: TROPONIN-I 0.091 ng/mL (0.000-0.060)
--- NOTE | 2020-11-05 06:19 | NUR ---
CONSULT FOR DR HUANG CALLED AT 0244, CONSULT FOR DR PACHECO CALLED AT 0245, CONSULT FOR DR THOMAS CALLED AT 0243, RECEIVED CALL BACK FROM BABAK BAIN WITH CARDIOLOGY
--- NOTE | 2020-11-05 08:00 | NUR ---
ALERT AND ORIENTED WITH BIPAP AT PRESCRIBED SETTING. GOOD ROM OF EXT. MORBID OBESITY NOTED WITH GENERAIZED EDEMA. NO DISTRESS NOTED. HRRR. LUNGS CTA WITH BOWEL SOUNDS NOTED. DENIES ANY PAIN OR DISCOMFORT AT THIS TIME. TELEMETRY INTACT
[2020-11-05 09:28] LABS: CKMB 0.8 U/L (0.0-3.6); CREATINE KINASE 51 UL (21-215)
--- NOTE | 2020-11-05 10:00 | NUR ---
DR PACHECO HERE WITH NEW ORDERS NOTED. BIPAP SETTING ADJUSTED PER ORDER. NO CHANGE IN CONDITION WIT CONTINUED NPO STATUS
--- NOTE | 2020-11-05 12:09 | NUR ---
PATIENT O2 DECREASED TO 3. N/C WITH NO DYSPNEA NOTED. ENCOURAGED INCENTIVE SPIROMETRY WITH HOP AT 45% ANGLE. INSTRUCTED ON PROPER BREATHING EXERCISES AND APPRECIATIVE OF CARE. UA OBTAINED AND SENT TO LAB. NO S/S OF HYPOXIA NOTED.
[2020-11-05 12:29] LABS: BILIRUBIN NEGATIVE (NEGATIVE); KETONE NEGATIVE (NEGATIVE); NITRITE NEGATIVE (NEGATIVE); UROBILINOGEN NORMAL mg/dL (< 2)
[2020-11-05 12:30] LABS: WHITE CELLS - URINE 0-5 HPF (0-4)
[2020-11-05 12:31] LABS: BACTERIA MANY HPF (NONE SEEN)
--- NOTE | 2020-11-05 14:00 | NUR ---
DR. LOPEZ HERE FOR ROUNDS WITH NEW ORDER. PT VOIDED WITH BLADDER SCAN DONE WITH 242CC RESIDUAL NOTED. RESP EVEN W/O DYSPNEA ON 3L N/C. DENIES ANY DYSURIA WITH URINATION.
[2020-11-05 15:35] LABS: CKMB 1.1 U/L (0.0-3.6); CREATINE KINASE 47 UL (21-215); TROPONIN-I 0.058 ng/mL (0.000-0.060)
--- NOTE | 2020-11-05 18:13 | NUR ---
RESP ON BIPAP AND RESTING WITHEYES CLOSES WITH RESP EVEN AND UNLABORED. RESPOSITIONED FOR COMFORT. DENIES ANY PAIN OR DISCOMFORT AT THIS TIME. IVF INFUSING AT PRESCRIBED RATE.
--- NOTE | 2020-11-05 19:20 | NUR ---
PT SISTER ON PT'S PERSONAL TELEPHONE, VERBAL CONSENT GIVEN BY PATIENT TO TALK TO HER. ALL QUESTIONS ANSWERED.
--- NOTE | 2020-11-05 21:31 | NUR ---
APPLIED BIPAP FOR NIGHT. NO LEAKS NOTED. OXYGEN SATURATION AT 98%. PATIENT STATES SHE USES TRELEGY AT HOME. SAYS HER MOTHER WILL BRING TOMORROW.
[2020-11-06] VITALS (14 sets, daily range): BP systolic 95–140; BP diastolic 44–86
[2020-11-06 04:10] LABS: BASOPHILS 0.8 % (0-2); EOSINOPHILS 2.3 % (0-7); HEMATOCRIT 32.4 % (36.0-48.0); HEMOGLOBIN 9.4 g/dL (12-16); LYMPHOCYTES 16.6 % (15-50); MCH 24.3 pg (26.0-34.0); MCV 83.7 fL (80.0-100.0); MEAN PLATELET VOLUME 9.4 fL (7.4-10.4); MONOCYTES 6.5 % (2-11); NEUTROPHILS 73.8 % (40-80); PLATELET COUNT 168 10x3/uL (130-400); RBC 3.88 10x6/uL (4.00-5.40); RDW 18.8 % (11.5-14.5)
[2020-11-06 04:30] LABS: ANION GAP 8.4 mmol/L (8-16); BILIRUBIN - TOTAL 0.3 mg/dL (0.2-1.3); CALCIUM 8.4 mg/dL (8.5-10.1); MAGNESIUM - SERUM 2.7 mg/dL (1.8-2.4); PROTEIN - SERUM 7.5 g/dL (6.4-8.2)
[2020-11-06 04:32] LABS: CREATININE - SERUM 2.5 mg/dL (0.6-1.3); POTASSIUM - SERUM 4.4 mmol/L (3.5-5.1)
--- NOTE | 2020-11-06 08:00 | NUR ---
02 3L N/C AND ASSSITED UP TO BSC WITH PATIENT TOLERATING WELL W/O DESATURAIZATION AND DYSPNEA. IVF INFUSING AT PRESCRIBED RATE. ENCOURAGED TO USE CALL LIGHT FOR ASSSIT.
--- NOTE | 2020-11-06 10:00 | NUR ---
DR PACHECO HERE WITH NEW ORDERS NOTED. IVF DECREASED TO 75CC/HR.INSTRUCTED PATIENT ON NEED TO ALERNATED BIPAP AND O2 3/ N/C.
--- NOTE | 2020-11-06 12:00 | NUR ---
DR. LOPEZ HERE WITH NEW ORDER NOTED. IVF DISCONTINUED AND ASSSITED UP TO BSC WITH LARGE SOFT BM NOTED. UPTO BSC WITH SBA W/O DYSPNEA.
--- NOTE | 2020-11-06 14:00 | NUR ---
ASSITED UP TO BSC WITH SBA AND VOIDED. PERICARE DONE PER STAFF. IVF AND TELEMETRY INTACT.DENIES ANY PAIN OR DISCOMFORT WITH NO DYSPNEA NOTED.
--- NOTE | 2020-11-06 16:56 | NUR ---
ALERT AND ORIENTED X4. REPORT CALLED TO [facility] WITH PATIENT STABLE ON TRANSFER. O23L N/C.
--- NOTE | 2020-11-06 21:30 | NUR ---
PATIENT AMBULATING TO RESTROOM WITH CANE. BEDTIME SNACK PROVIDED. BIPAP PLACED ON PATIENT FOR NIGHT.
[2020-11-07 04:37] VITALS: BP 142/80
[2020-11-07 07:11] LABS: BASOPHILS 0.5 % (0-2); EOSINOPHILS 3.9 % (0-7); HEMATOCRIT 28.4 % (36.0-48.0); HEMOGLOBIN 8.6 g/dL (12-16); LYMPHOCYTES 18.7 % (15-50); MCH 24.9 pg (26.0-34.0); MCHC 30.2 g/dL (31.0-37.0); MCV 82.5 fL (80.0-100.0); MEAN PLATELET VOLUME 9.3 fL (7.4-10.4); MONOCYTES 6.4 % (2-11); NEUTROPHILS 70.5 % (40-80); PLATELET COUNT 180 10x3/uL (130-400); RBC 3.45 10x6/uL (4.00-5.40); RDW 17.8 % (11.5-14.5); WBC 4.7 10x3/uL (4.8-10.8)
[2020-11-07 07:26] LABS: ALBUMIN 2.7 g/dL (3.4-5.0); ANION GAP 7.7 mmol/L (8-16); BILIRUBIN - TOTAL 0.23 mg/dL (0.2-1.3); CALCIUM 8.3 mg/dL (8.5-10.1); CARBON DIOXIDE 33.3 mmol/L (21.0-32.0); MAGNESIUM - SERUM 2.6 mg/dL (1.8-2.4); PROTEIN - SERUM 6.8 g/dL (6.4-8.2)
[2020-11-07 07:27] LABS: CREATININE - SERUM 1.5 mg/dL (0.6-1.3)
[2020-11-07 09:11] VITALS: BP 115/66
[2020-11-07 12:51] VITALS: BP 115/58
[2020-11-07 16:32] VITALS: BP 127/41
--- NOTE | 2020-11-07 18:26 | NUR ---
PATIENTS POA REQUESTED TO LEAVE AMA DUE UNHAPPY WITH CARE RECEIVED DUE TO USING BIPAP AND NOT HOME TRILOGY. RISK DISCUSSED WELL LIABILITY. STABLE AT TIME OF DEPARTURE. LINDSEY MARKS APN NOTIFIED.
== END 2020-11-07 18:30 | disposition left against medical advice (07) | DRG 189 ==
LOC: D.ER 20:13 → D.ICU 22:48 → D.EDHOLD 22:48 → D.ICU 11-05 00:02 → D.MS 11-06 17:31
PROVIDERS: Emergency Medicine; ADMIT Emergency Medicine; ATTEND Emergency Medicine
DX: J96.22 Acute and chronic respiratory failure with hypercapnia (principal); I21.A1 Myocardial infarction type 2; N17.0 Acute kidney failure with tubular necrosis; I50.31 Acute diastolic (congestive) heart failure; E66.2 Morbid (severe) obesity with alveolar hypoventilation; Z68.45 Body mass index [BMI] 70 or greater, adult; D50.9 Iron deficiency anemia, unspecified; E11.65 Type 2 diabetes mellitus with hyperglycemia; I71.4 Abdominal aortic aneurysm, without rupture; I11.0 Hypertensive heart disease with heart failure

== ENCOUNTER 2020-11-25 21:05 | Inpatient (IN) | payer OTHER ==
[~2020-11-25] VITALS: Ht 162.6 cm; Wt 208.5 kg
[2020-11-25 22:00] VITALS: BP 119/60
[2020-11-25 22:56] LABS: EOSINOPHILS 0.6 % (0-7); HEMATOCRIT 32.9 % (36.0-48.0); HEMOGLOBIN 9.9 g/dL (12-16); MCH 23.8 pg (26.0-34.0); MCV 79.3 fL (80.0-100.0); MEAN PLATELET VOLUME 8.7 fL (7.4-10.4); MONOCYTES 4.7 % (2-11); NEUTROPHILS 86.7 % (40-80); PLATELET COUNT 163 10x3/uL (130-400); RBC 4.15 10x6/uL (4.00-5.40); RDW 18.8 % (11.5-14.5); WBC 7.7 10x3/uL (4.8-10.8)
[2020-11-25 22:59] LABS: CALC OSMOLALITY 292 mosm/kg (275-300); CALCIUM 8.3 mg/dL (8.5-10.1); CARBON DIOXIDE 35.3 mmol/L (21.0-32.0); CHLORIDE - SERUM 102 mmol/L (98-107); CREATININE - SERUM 1.6 mg/dL (0.6-1.3); GLUCOSE 149 mg/dL (74-106); POTASSIUM - SERUM 3.2 mmol/L (3.5-5.1); SODIUM 142 mmol/L (136-145); UREA NITROGEN 33 mg/dL (7-18); eGFR NON AFRICAN AMERICAN 38 mL/min (90-120)
[2020-11-25 23:00] VITALS: BP 130/67
[2020-11-25 23:15] LABS: ALBUMIN 3.1 g/dL (3.4-5.0); ALKALINE PHOSPHATASE 86 U/L (30-120); ALT (SGPT) 17 U/L (10-68); BILIRUBIN - TOTAL 0.68 mg/dL (0.2-1.3); CKMB 0.5 U/L (0.0-3.6); CREATINE KINASE 41 UL (21-215); PRO BNP 1077 pg/mL (0-125); PROTEIN - SERUM 7.5 g/dL (6.4-8.2)
[2020-11-25 23:22] LABS: TROPONIN-I < 0.017 ng/mL (0.000-0.060)
[2020-11-26] VITALS (13 sets, daily range): BP systolic 95–141; BP diastolic 34–74; BMI 79.1
--- NOTE | 2020-11-26 07:00 | NUR ---
RECEIVED REPORT FROM MILADY MCLEAN
--- NOTE | 2020-11-26 10:30 | NUR ---
CALLED PHARMACY AT 0800 FOR DEMEDEX. STILL AWAITING THIS MED AT THIS TIME.
--- NOTE | 2020-11-26 10:48 | NUR ---
NOTIFIED PHARMACY OF NEED FOR DEMEDEX. TUBE SYSTEM IS DOWN AT THIS TIME.
--- NOTE | 2020-11-26 12:43 | NUR ---
CALLED REPORT TO [facility] AND WAS INFORMED PT ROOM NOT CLEAN. CALLED STOPER, KAYLIN TO INFORM.
--- NOTE | 2020-11-26 13:47 | NUR ---
CALLED MED 1 TO CHECK ON ROOM STATUS. WAS INFORMED PT ROOM IS STILL DIRTY
--- NOTE | 2020-11-26 13:53 | NUR ---
INFORMED KAYLIN, NUT GRADER THAT PT ROOM IS STILL NOT CLEAN. SHE INFORMED ME THAT [facility] HAS BEEN CALLED.
[2020-11-27 04:00] VITALS: BP 95/62
[2020-11-27 07:24] VITALS: Ht 162.6 cm; Wt 208.5 kg
--- NOTE | 2020-11-27 07:38 | NUR ---
RESTING IN BED COMFORTABLY WITH NO CURRENT S/S OF DISTRESS AT THIS TIME. CURRENTLY RCVING 5L VIA NC. IV LOCATED TO RIGHT FA CURRENTLY SL. WILL CONT TO MONITOR.
[2020-11-27 08:58] VITALS: BP 109/57
[2020-11-27 09:16] LABS: BASOPHILS 0.1 % (0-2); EOSINOPHILS 0 % (0-7); HEMATOCRIT 34.3 % (36.0-48.0); LYMPHOCYTES 5.2 % (15-50); MCH 24.1 pg (26.0-34.0); MCHC 29.2 g/dL (31.0-37.0); MEAN PLATELET VOLUME 9.1 fL (7.4-10.4); MONOCYTES 2.3 % (2-11); NEUTROPHILS 92.4 % (40-80); PLATELET COUNT 163 10x3/uL (130-400); RBC 4.16 10x6/uL (4.00-5.40); RDW 18.3 % (11.5-14.5)
[2020-11-27 09:30] LABS: ALBUMIN 3.1 g/dL (3.4-5.0); BILIRUBIN - TOTAL 0.36 mg/dL (0.2-1.3); CALCIUM 8.4 mg/dL (8.5-10.1); CARBON DIOXIDE 36.3 mmol/L (21.0-32.0); CREATININE - SERUM 1.8 mg/dL (0.6-1.3); MAGNESIUM - SERUM 2.6 mg/dL (1.8-2.4); PHOSPHOROUS 5.5 mg/dL (2.5-4.9); PROTEIN - SERUM 7.7 g/dL (6.4-8.2)
[2020-11-27 09:32] LABS: ANION GAP 9.5 mmol/L (8-16); POTASSIUM - SERUM 3.8 mmol/L (3.5-5.1)
[2020-11-27 09:42] LABS: MCV 82.5 fL (80.0-100.0)
[2020-11-27 13:38] VITALS: BP 114/60
[2020-11-27 20:00] VITALS: BP 103/49
[2020-11-28 05:44] LABS: BASOPHILS 0.2 % (0-2); EOSINOPHILS 0.2 % (0-7); HEMOGLOBIN 9.6 g/dL (12-16); LYMPHOCYTES 9.6 % (15-50); MCH 22.9 pg (26.0-34.0); MCHC 28.3 g/dL (31.0-37.0); MEAN PLATELET VOLUME 9.3 fL (7.4-10.4); MONOCYTES 5.7 % (2-11); NEUTROPHILS 84.3 % (40-80); PLATELET COUNT 144 10x3/uL (130-400); RDW 18.3 % (11.5-14.5)
[2020-11-28 05:46] LABS: WBC 11.6 10x3/uL (4.8-10.8)
[2020-11-28 05:59] LABS: ANION GAP 8.3 mmol/L (8-16); BILIRUBIN - TOTAL 0.29 mg/dL (0.2-1.3); CALCIUM 8.2 mg/dL (8.5-10.1); CARBON DIOXIDE 36.5 mmol/L (21.0-32.0); CREATININE - SERUM 1.7 mg/dL (0.6-1.3); MAGNESIUM - SERUM 2.3 mg/dL (1.8-2.4); PHOSPHOROUS 3.3 mg/dL (2.5-4.9); POTASSIUM - SERUM 3.8 mmol/L (3.5-5.1); PROTEIN - SERUM 7.5 g/dL (6.4-8.2)
[2020-11-28 08:00] VITALS: BP 116/80
[2020-11-28 12:29] VITALS: BP 126/75
--- NOTE | 2020-11-28 15:45 | NUR ---
I have reviewed this patient and I concur with the Shift Assessment completed by the Licensed Practical Nurse today this shift.
[2020-11-28 16:15] VITALS: BP 127/69
--- NOTE | 2020-11-29 06:54 | NUR ---
AWAKE AND WITHOUT DISTRESS. DOOR OPEN. CALL LIGHT IN REACH
[2020-11-29 09:55] LABS: BASOPHILS 0.2 % (0-2); EOSINOPHILS 0.3 % (0-7); HEMATOCRIT 35.9 % (36.0-48.0); HEMOGLOBIN 10.4 g/dL (12-16); LYMPHOCYTES 7.7 % (15-50); MCH 23.6 pg (26.0-34.0); MCHC 29.1 g/dL (31.0-37.0); MCV 80.9 fL (80.0-100.0); MONOCYTES 5.7 % (2-11); NEUTROPHILS 86.1 % (40-80); PLATELET COUNT 158 10x3/uL (130-400); RBC 4.43 10x6/uL (4.00-5.40); RDW 18.2 % (11.5-14.5)
[2020-11-29 10:05] LABS: ALBUMIN 3.2 g/dL (3.4-5.0); ANION GAP 3.6 mmol/L (8-16); BILIRUBIN - TOTAL 0.41 mg/dL (0.2-1.3); CALCIUM 8.5 mg/dL (8.5-10.1); CREATININE - SERUM 1.5 mg/dL (0.6-1.3); MAGNESIUM - SERUM 2.3 mg/dL (1.8-2.4); PHOSPHOROUS 3.1 mg/dL (2.5-4.9); POTASSIUM - SERUM 4.1 mmol/L (3.5-5.1); PROTEIN - SERUM 7.8 g/dL (6.4-8.2)
[2020-11-29 10:07] LABS: CARBON DIOXIDE 43.5 mmol/L (21.0-32.0)
--- NOTE | 2020-11-29 10:17 | NUR ---
RECEIVED CALL FROM LAB THAT PATIENT CO2 IS 43.5, NOTIFIED OCTAVIO NGUYEN AND RECORDED IN CRITICAL LAB BOOK, CONTINUE WITH PLAN OF CARE
[2020-11-29 10:19] LABS: WBC 6.4 10x3/uL (4.8-10.8)
[2020-11-29 10:27] VITALS: BP 146/63
[2020-11-29 13:00] VITALS: BP 126/62
[2020-11-29 17:00] VITALS: BP 111/71
[2020-11-29 20:00] VITALS: BP 126/56
[2020-11-30] VITALS: BP 129/59
--- NOTE | 2020-11-30 00:32 | NUR ---
I have reviewed this patient and I concur with the Shift Assessment completed by the Licensed Practical Nurse today this shift.
[2020-11-30 04:00] VITALS: BP 111/72
[2020-11-30 06:33] LABS: ANION GAP 6.7 mmol/L (8-16); BILIRUBIN - TOTAL 0.42 mg/dL (0.2-1.3); CALCIUM 8.5 mg/dL (8.5-10.1); CARBON DIOXIDE 38.5 mmol/L (21.0-32.0); CREATININE - SERUM 1.3 mg/dL (0.6-1.3); MAGNESIUM - SERUM 2.4 mg/dL (1.8-2.4); PHOSPHOROUS 2.7 mg/dL (2.5-4.9); POTASSIUM - SERUM 4.2 mmol/L (3.5-5.1); PROTEIN - SERUM 7.3 g/dL (6.4-8.2)
[2020-11-30 07:48] LABS: BASOPHILS 0.6 % (0-2); EOSINOPHILS 0.2 % (0-7); HEMATOCRIT 35.1 % (36.0-48.0); HEMOGLOBIN 10.3 g/dL (12-16); LYMPHOCYTES 20.1 % (15-50); MCH 23.4 pg (26.0-34.0); MCHC 29.3 g/dL (31.0-37.0); MEAN PLATELET VOLUME 8.7 fL (7.4-10.4); MONOCYTES 9.6 % (2-11); NEUTROPHILS 69.5 % (40-80); PLATELET COUNT 173 10x3/uL (130-400); RBC 4.39 10x6/uL (4.00-5.40); RDW 18.4 % (11.5-14.5)
[2020-11-30 08:00] LABS: WBC 9.7 10x3/uL (4.8-10.8)
[2020-11-30 08:54] VITALS: BP 136/77
--- NOTE | 2020-11-30 09:00 | NUR ---
ASSESSMENT PER FLOW SHEET. PATENT IS WITHOUT DISTRESS.DOOR OPEN TO MONITOR FOR NEEDS
[2020-11-30] MEDS ORDERED: MUCINEX DM ER1 EAC1 PO (12:58)
[2020-11-30] MEDS ORDERED: PULMICORT0.5 MG/21 INH (12:58)
[2020-11-30] MEDS ORDERED: DOXYCYCLINE HY100 M2 PO (12:59)
[2020-11-30] MEDS ORDERED: PERFOROMIS20 MCG/21 INH (12:59)
[2020-11-30] MEDS ORDERED: MEDROL DOSE PACK4 MG PO (13:03)
[2020-11-30 13:17] VITALS: BP 129/81
--- NOTE | 2020-11-30 14:32 | MORECARE ---
CASE MANAGEMENT DISCHARGE SUMMARY PATIENT: NABILA BRIGHT UNIT: [id number] ADM DATE: 11/26/20 AGE: 35 : 81 SEX: F [facility] AUTHOR: KYLE TINOCO PHYSICIAN: REFERRING PHYSICIAN: ELPIDIO RIZZO MD DATE OF SERVICE: 11/30/20 Case Management Discharge Planning Summary DCP REVIEW SUMMARY ANTICIPATED D/C DATE: EXPECTED LOS : CASE STATUS: DCP Initiated INITIAL REVIEW: 11/26/2020 INITIAL REVIEWER: Katie Del Cid FINAL DISCHARGE DISPOSITION: : FINAL REVIEWER: FINAL REVIEW DATE: DCP Focus Questions & Answers QUESTION: ANSWER : PATIENT: NABILA BRIGHT ENCOUNTER: [id number] MEDICAL RECORD#: [id number] ADMISSION DATE: 11/26/2020 DISCHARGE DATE: ATTENDING MD: : AGE: 35 MARITAL STATUS: S DC PLAN ID: [id number] FACILITY: [facility] PRINTED ON: 11/30/20 14:32 CT All edits/amendments must be made on the electronic document DICTATION DATE: 11/30/[address] CLERK: CRUZ 11/30/20 1432 RPT#: [id number] DC DATE: STATUS: ADM IN [facility] [address] [place] [address] END OF REPORT
--- NOTE | 2020-11-30 14:46 | MORECARE ---
CASE MANAGEMENT DISCHARGE SUMMARY PATIENT: NABILA BRIGHT UNIT: [id number] ADM DATE: 11/26/20 AGE: 35 : 83 SEX: F ROOM/BED: D.2215 AUTHOR: KYLE TINOCO PHYSICIAN: REFERRING PHYSICIAN: ELPIDIO RIZZO MD DATE OF SERVICE: 11/30/20 Case Management Discharge Planning Summary COMMENTS ENTERED DATE: 11/30/20 14:28 CT COMMENT TYPE: Discharge Planning REVIEWER: Katie Del Cid CM met with patient to complete initial dc planning assessment. CM educated patient on the CM role and verbal consent given by patient to complete assessment. Patient lives at home with her sister who is her POA. She stated that her sister will be her compactor driver home. CM discussed availability of home health, rehab services, and medical equipment. She is a patient of Dr Makayla Riley and uses [facility] in [place]. She stated that she has a shower chair, Home O2 with portability, Nebulizer, cane, hospital bed, walker, cane, and Triliogy. Her resp DME comes from [facility]. She stated that she has had [facility] in the past and would like them again. I called [facility] with [facility] and she stated that they discharged her and will not take her back because she in non-compliant. I called [facility] to see if they accept her insurance and they were going to run the insurance and get back with me. Patient denied known discharge needs at this time. CM will continue to follow and will assist as needed with dc plans/needs. DCP REVIEW SUMMARY ANTICIPATED D/C DATE: EXPECTED LOS : CASE STATUS: DCP Initiated INITIAL REVIEW: 11/26/2020 INITIAL REVIEWER: Katie Del Cid FINAL DISCHARGE DISPOSITION: : FINAL REVIEWER: FINAL REVIEW DATE: DCP Focus Questions & Answers QUESTION: ANSWER : PATIENT: NABILA BRIGHT ENCOUNTER: [id number] MEDICAL RECORD#: [id number] ADMISSION DATE: 11/26/2020 DISCHARGE DATE: ATTENDING MD: WOLFGANG: AGE: 35 MARITAL STATUS: S DC PLAN ID: [id number] FACILITY: [facility] PRINTED ON: 11/30/20 14:46 CT All edits/amendments must be made on the electronic document DICTATION DATE: 11/30/201444 PATTERN HANGER: DM 11/30/201444 RPT#: [id number] DC DATE: STATUS: ADM IN [facility] [address] [place] [address] END OF REPORT
--- NOTE | 2020-11-30 15:41 | MORECARE ---
CASE MANAGEMENT DISCHARGE SUMMARY PATIENT: NABILA BRIGHT UNIT: [id number] ADM DATE: 11/26/20 AGE: 35 : 83 SEX: F ROOM/BED: D.2215 AUTHOR: ALEJANDRINA,DOC PHYSICIAN: REFERRING PHYSICIAN: ELPIDIO RIZZO MD DATE OF SERVICE: 11/30/20 Case Management Discharge Planning Summary COMMENTS ENTERED DATE: 11/30/20 15:38 CT COMMENT TYPE: Discharge Planning REVIEWER: Katie Del Cid [facility] DOES NOT ACCEPT THIS INSURANCE, I HAVE SENT IT TO [facility] WITH [employer] ENTERED DATE: 11/30/20 15:32 CT COMMENT TYPE: Discharge Planning REVIEWER: Katei Del Cid [facility] IS NOT IN NETWORK WITH HER INSURANCE AND SHE DOES NOT HAVE OUT OF NETWORK BENEFITS, I AM CALLING [facility] TO SEE IF THEY TAKE THINS INSURANCE ENTERED DATE: 11/30/20 14:28 CT COMMENT TYPE: Discharge Planning REVIEWER: Katie Del Cid CM met with patient to complete initial dc planning assessment. CM educated patient on the CM role and verbal consent given by patient to complete assessment. Patient lives at home with her sister who is her POA. She stated that her sister will be her bulk tank driver home. JB discussed availability of home health, rehab services, and medical equipment. She is a patient of Dr [facility] and [facility] [place]. She stated that she has a shower chair, Home O2 with portability, Nebulizer, cane, hospital bed, walker, cane, and Triliogy. Her resp DME comes from [facility]. She stated that she has had care [facility] in the past and would like them again. I called [facility] with [facility] and she stated that they discharged her and will not take her back because she in non-compliant. I called [facility] to see if they accept her insurance and they were going to run the insurance and get back with me. Patient denied known discharge needs at this time. CM will continue to follow and will assist as needed with dc plans/needs. DCP REVIEW SUMMARY ANTICIPATED D/C DATE: EXPECTED LOS : CASE STATUS: DCP Initiated INITIAL REVIEW: 11/26/2020 INITIAL REVIEWER: Katie Del Cid FINAL DISCHARGE DISPOSITION: : FINAL REVIEWER: FINAL REVIEW DATE: DCP Focus Questions & Answers QUESTION: ANSWER : PATIENT: NABILA BRIGHT ENCOUNTER: [id number] MEDICAL RECORD#: [id number] ADMISSION DATE: 11/26/2020 DISCHARGE DATE: ATTENDING MD: WOLFGANG: AGE: 35 MARITAL STATUS: S DC PLAN ID: [id number] FACILITY: [facility] PRINTED ON: 11/30/20 15:41 CT All edits/amendments must be made on the electronic document DICTATION DATE: 11/30/201540 BELT PRESS OPERATOR: CRUZ 11/30/20 154 RPT#: [id number] DC DATE: STATUS: ADM IN [facility] [address] [place] [address] END OF REPORT
--- NOTE | 2020-11-30 16:19 | MORECARE ---
CASE MANAGEMENT DISCHARGE SUMMARY PATIENT: NABILA BRIGHT UNIT: [id number] ADM DATE: 11/26/20 AGE: 35 : 81 SEX: F ROOM/BED: D.2215 AUTHOR: ALEJANDRINA,DOC PHYSICIAN: REFERRING PHYSICIAN: ELPIDIO RIZZO MD DATE OF SERVICE: 11/30/20 Case Management Discharge Planning Summary COMMENTS ENTERED DATE: 11/30/20 16:16 CT COMMENT TYPE: Discharge Planning REVIEWER: Katie LACKEY APN CALLED BACK AND STATED THAT DR GARNETT WILL ALLOW HER TO GO HOME IF SHE CAN BE SEEN BY HER PCP THIS OF SUNDAY I HAVE LET MICHAEL KNOW AND SHE IS WORKING ON MAKING THAT HAPPEN CM TO ASSIST NEEDED ENTERED DATE: 11/30/20 16:15 CT COMMENT TYPE: Discharge Planning REVIEWER: Katie Del Cid [employer] [facility] WILL NOT ACCEPT THE PATIENT BECAUSE SHE CONTINUES TO SMOKE IN THE HOME WITH HER O2, MIKHAIL [employer] [facility] DOES NTO ACCEPT HER INSURANCE I SPOKE WITH DARYA CUNNINGHAM ABOUT NOT BEING ABLE TO GET HOME HEALTH AND SHE STATED THAT SHE WILL NEED TO FOLLOW UP WITH HER PC EARLY NEXT WEEK ENTERED DATE: 11/30/20 15:38 CT COMMENT TYPE: Discharge Planning REVIEWER: Katie Del Cid [facility] DOES NOT ACCEPT THIS INSURANCE, I HAVE SENT IT TO [place] WITH [employer] ENTERED DATE: 11/30/20 15:32 CT COMMENT TYPE: Discharge Planning REVIEWER: Katie Del Cid [facility] IS NOT IN NETWORK WITH HER INSURANCE AND SHE DOES NOT HAVE OUT OF NETWORK BENEFITS, I AM CALLING [employer] [facility] TO SEE IF THEY TAKE THINS INSURANCE ENTERED DATE: 11/30/20 14:28 CT COMMENT TYPE: Discharge Planning REVIEWER: Katie Del Cid CM met with patient to complete initial dc planning assessment. CM educated patient on the CM role and verbal consent given by patient to complete assessment. Patient lives at home with her sister who is her POA. She stated that her sister will be her tractor sweeper driver home. CM discussed availability of home health, rehab services, and medical equipment. She is a patient of Dr Makayla Riley and uses [facility] in [place]. She stated that she has a shower chair, Home O2 with portability, Nebulizer, cane, hospital bed, walker, cane, and Triliogy. [facility]. She stated that she has had [facility] past and would like them again. I called [facility] with [facility] and she stated that they discharged her and will not take her back because she in non-compliant. I called [facility] to see if they accept her insurance and they were going to run the insurance and get back with me. Patient denied known discharge needs at this time. CM will continue to follow and will assist as needed with dc plans/needs. DCP REVIEW SUMMARY ANTICIPATED D/C DATE: EXPECTED LOS : CASE STATUS: DCP Initiated INITIAL REVIEW: 11/26/2020 INITIAL REVIEWER: Katie Del Cid FINAL DISCHARGE DISPOSITION: : FINAL REVIEWER: FINAL REVIEW DATE: DCP [employer] Questions & Answers QUESTION: ANSWER : PATIENT: NABILA BRIGHT ENCOUNTER: [id number] MEDICAL RECORD#: [id number] ADMISSION DATE: 11/26/2020 DISCHARGE DATE: ATTENDING MD: : AGE: 35 MARITAL STATUS: S DC PLAN ID: [id number] FACILITY: [facility] PRINTED ON: 11/30/20 16:19 CT All edits/amendments must be made on the electronic document DICTATION DATE: 11/30/201618 DIRECTOR OF STATE: CRUZ 11/30/201618 RPT#: [id number] DC DATE: STATUS: ADM IN [facility] [address] [place] [address] END OF REPORT
--- NOTE | 2020-11-30 16:31 | MORECARE ---
CASE MANAGEMENT DISCHARGE SUMMARY PATIENT: NABILA BRIGHT UNIT: [id number] ADM DATE: 11/26/20 AGE: 35 : 81 SEX: F ROOM/BED: D.2215 AUTHOR: ALEJANDRINA,DOC PHYSICIAN: REFERRING PHYSICIAN: ELPIDIO RIZZO MD DATE OF SERVICE: 11/30/20 Case Management Discharge Planning Summary COMMENTS ENTERED DATE: 11/30/20 16:21 CT COMMENT TYPE: Discharge Planning REVIEWER: Katie Del Cid THE PATIENT'S PC OFFICE IS CLOSED SO UNABLE TO CHANGE HER FOLLOW UP APPOINTMENT SO HER DC IS PUT ON HOLD TILL TOMORROW ENTERED DATE: 11/30/20 16:16 CT COMMENT TYPE: Discharge Planning REVIEWER: Katie LACKEY APN CALLED BACK AND STATED THAT DR GARNETT WILL ALLOW HER TO GO HOME IF SHE CAN BE SEEN BY HER PCP THIS OF SUNDAY I HAVE LET MICHAEL KNOW AND SHE IS WORKING ON MAKING THAT HAPPEN CM TO ASSIST NEEDED ENTERED DATE: 11/30/20 16:15 CT COMMENT TYPE: Discharge Planning REVIEWER: Katie Del Cid [employer] [facility] WILL NOT ACCEPT THE PATIENT BECAUSE SHE CONTINUES TO SMOKE IN THE HOME WITH HER O2, MIKHAIL [employer] [facility] DOES NTO ACCEPT HER INSURANCE I SPOKE WITH DARYA CUNNINGHAM ABOUT NOT BEING ABLE TO GET HOME HEALTH AND SHE STATED THAT SHE WILL NEED TO FOLLOW UP WITH HER PC EARLY NEXT WEEK ENTERED DATE: 11/30/20 15:38 CT COMMENT TYPE: Discharge Planning REVIEWER: Katie Del Cid [facility] DOES NOT ACCEPT THIS INSURANCE, I HAVE SENT IT TO [place] WITH [employer] ENTERED DATE: 11/30/20 15:32 CT COMMENT TYPE: Discharge Planning REVIEWER: Katie Del Cid [facility] IS NOT IN NETWORK WITH HER INSURANCE AND SHE DOES NOT HAVE OUT OF NETWORK BENEFITS, I AM CALLING [facility] TO SEE IF THEY TAKE THINS INSURANCE ENTERED DATE: 11/30/20 14:28 CT COMMENT TYPE: Discharge Planning REVIEWER: Katie Del Cid CM met with patient to complete initial dc planning assessment. CM educated patient on the CM role and verbal consent given by patient to complete assessment. Patient lives at home with her sister who is her POA. 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 CM discussed availability of home health, rehab services, and medical equipment. She is a patient of Dr Makayla Riley and uses [facility] in [place]. She stated that she has a shower chair, Home O2 with portability, Nebulizer, cane, hospital bed, walker, cane, and Triliogy. Her resp DME comes from [facility]. She stated that she has had [facility] in the past and would like them again. I called [facility] with [facility] and she stated that they discharged her and will not take her back because she in non-compliant. I called [facility] to see if they accept her insurance and they were going to run the insurance and get back with me. Patient denied known discharge needs at this time. CM will continue to follow and will assist as needed with dc plans/needs. DCP REVIEW SUMMARY ANTICIPATED D/C DATE: EXPECTED LOS : CASE STATUS: DCP Initiated INITIAL REVIEW: 11/26/2020 INITIAL REVIEWER: Katie Del Cid FINAL DISCHARGE DISPOSITION: : FINAL REVIEWER: FINAL REVIEW DATE: DCP Focus Questions & Answers QUESTION: ANSWER : PATIENT: NABILA BRIGHT ENCOUNTER: [id number] MEDICAL RECORD#: [id number] ADMISSION DATE: 11/26/2020 DISCHARGE DATE: ATTENDING MD: WOLFGANG: AGE: 35 MARITAL STATUS: S DC PLAN ID: [id number] FACILITY: [facility] PRINTED ON: 11/30/20 16:31 CT All edits/amendments must be made on the electronic document DICTATION DATE: 11/30/201630 MECHANICAL CAR CHECKER: CRUZ 11/30/20 163 RPT#: [id number] DC DATE: STATUS: ADM IN [facility] [address] [place] [address] END OF REPORT
[2020-11-30] MEDS ORDERED: FLUCONAZOLE150 MG PO (16:40)
--- NOTE | 2020-11-30 17:00 | NUR ---
SISTER IS MAD AND CURSING ON PHONE.PATIENT WAS CRYING BECAUSE DISCHARGE WAS BEING HELD TILL AM. MICHAEL HEARD DC QUALITY PROCESS AUDITOR HAD CALLED TO MAKE APPOINTMENT FOR DECEMBER 02,BUT OFFICE WAS CLOSED. SISTER OF PATIENT CALLED BACK AND SAID SHE HAD APPOINTMENT Sunday AT 1020. MICHAEL HAS SPOKE WITH DR GARNETT AND TOLD HIM ABOUT APPOINTMENT BEING SCHEDULED BY PATIENTS SISTER AND HE SAID IF THEY HAD APPOINTMENT,HE WAS OK WITH DISCHARGE.
[2020-11-30 17:42] VITALS: BP 122/76
--- NOTE | 2020-11-30 17:57 | NUR ---
DISCHARGE INSTRUCTIONS WITH PATIENT.SHE STATES UNDERSTANDING. SISTER TO CALL WHEN SHE GETS HERE AT HOSPITAL.
--- NOTE | 2020-11-30 19:18 | MORECARE ---
CASE MANAGEMENT DISCHARGE SUMMARY PATIENT: NABILA BRIGHT UNIT: [id number] ADM DATE: 11/26/20 AGE: 35 : 81 SEX: F ROOM/BED: D.2215 AUTHOR: ALEJANDRINA,DOC PHYSICIAN: REFERRING PHYSICIAN: ELPIDIO RIZZO MD DATE OF SERVICE: 11/30/20 Case Management Discharge Planning Summary COMMENTS ENTERED DATE: 11/30/20 16:21 CT COMMENT TYPE: Discharge Planning REVIEWER: Katie Del Cid THE PATIENT'S PC OFFICE IS CLOSED SO UNABLE TO CHANGE HER FOLLOW UP APPOINTMENT SO HER DC IS PUT ON HOLD TILL TOMORROW ENTERED DATE: 11/30/20 16:16 CT COMMENT TYPE: Discharge Planning REVIEWER: Katie LACKEY APN CALLED BACK AND STATED THAT DR GARNETT WILL ALLOW HER TO GO HOME IF SHE CAN BE SEEN BY HER PCP THIS OF SUNDAY I HAVE LET MICHAEL KNOW AND SHE IS WORKING ON MAKING THAT HAPPEN CM TO ASSIST NEEDED ENTERED DATE: 11/30/20 16:15 CT COMMENT TYPE: Discharge Planning REVIEWER: Katie Del Cid [employer] [facility] WILL NOT ACCEPT THE PATIENT BECAUSE SHE CONTINUES TO SMOKE IN THE HOME WITH HER O2, MIKHAIL [employer] [facility] DOES NTO ACCEPT HER INSURANCE I SPOKE WITH DARYA CUNNINGHAM ABOUT NOT BEING ABLE TO GET HOME HEALTH AND SHE STATED THAT SHE WILL NEED TO FOLLOW UP WITH HER PC EARLY NEXT WEEK ENTERED DATE: 11/30/20 15:38 CT COMMENT TYPE: Discharge Planning REVIEWER: Katie Del Cid [facility] DOES NOT ACCEPT THIS INSURANCE, I HAVE SENT IT TO [place] WITH [employer] ENTERED DATE: 11/30/20 15:32 CT COMMENT TYPE: Discharge Planning REVIEWER: Katie Del Cid [facility] IS NOT IN NETWORK WITH HER INSURANCE AND SHE DOES NOT HAVE OUT OF NETWORK BENEFITS, I AM CALLING [facility] TO SEE IF THEY TAKE THINS INSURANCE ENTERED DATE: 11/30/20 14:28 CT COMMENT TYPE: Discharge Planning REVIEWER: Katie Del Cid CM met with patient to complete initial dc planning assessment. CM educated patient on the CM role and verbal consent given by patient to complete assessment. Patient lives at home with her sister who is her POA. She stated that her sister will be her pole truck driver home. CM discussed availability of home health, rehab services, and medical equipment. She is a patient of Dr Makayla Riley and uses [facility] in [place]. She stated that she has a shower chair, Home O2 with portability, Nebulizer, cane, hospital bed, walker, cane, and Triliogy. Her resp DME comes from [facility]. She stated that she has had [facility] in the past and would like them again. I called [facility] with [facility] and she stated that they discharged her and will not take her back because she in non-compliant. I called [facility] to see if they accept her insurance and they were going to run the insurance and get back with me. Patient denied known discharge needs at this time. CM will continue to follow and will assist as needed with dc plans/needs. DCP REVIEW SUMMARY ANTICIPATED D/C DATE: EXPECTED LOS : CASE STATUS: DCP Initiated INITIAL REVIEW: 11/26/2020 INITIAL REVIEWER: Katie Del Cid FINAL DISCHARGE DISPOSITION: : FINAL REVIEWER: FINAL REVIEW DATE: DCP [employer] Questions & Answers QUESTION: ANSWER : PATIENT: NABILA BRIGHT ENCOUNTER: [id number] MEDICAL RECORD#: [id number] ADMISSION DATE: 11/26/2020 DISCHARGE DATE: 11/30/2020 ATTENDING MD: WOLFGANG: AGE: 35 MARITAL STATUS: S DC PLAN ID: [id number] FACILITY: [facility] PRINTED ON: 11/30/20 19:18 CT All edits/amendments must be made on the electronic document DICTATION DATE: 11/30/201917 GLASS CUT OFF SUPERVISOR: CRUZ 11/30/201917 RPT#: [id number] DC DATE:11/30/20 STATUS: DIS IN [facility] [address] [place] [address] END OF REPORT
== END 2020-11-30 19:11 | disposition home or self-care (01) | DRG 291 ==
LOC: D.ER 21:05 → D.EDHOLD 11-26 00:48 → D.MS 11-26 00:48
PROVIDERS: Emergency Medicine; ADMIT Family Medicine; ATTEND Family Medicine
DX: I13.0 Hypertensive heart and chronic kidney disease with heart failure and stage 1 through stage 4 chronic kidney disease, or unspecified chronic kidney disease (principal); I50.33 Acute on chronic diastolic (congestive) heart failure; J96.22 Acute and chronic respiratory failure with hypercapnia; J96.21 Acute and chronic respiratory failure with hypoxia; J81.1 Chronic pulmonary edema; J44.1 Chronic obstructive pulmonary disease with (acute) exacerbation; Z68.45 Body mass index [BMI] 70 or greater, adult; N17.9 Acute kidney failure, unspecified; E66.01 Morbid (severe) obesity due to excess calories; Z91.19 Patient's noncompliance with other medical treatment and regimen; J44.9 Chronic obstructive pulmonary disease, unspecified; D50.9 Iron deficiency anemia, unspecified; E87.6 Hypokalemia; E83.42 Hypomagnesemia; E11.65 Type 2 diabetes mellitus with hyperglycemia; K21.9 Gastro-esophageal reflux disease without esophagitis; F41.9 Anxiety disorder, unspecified; F32.9 Major depressive disorder, single episode, unspecified; I10 Essential (primary) hypertension; N18.9 Chronic kidney disease, unspecified; E11.22 Type 2 diabetes mellitus with diabetic chronic kidney disease; G47.33 Obstructive sleep apnea (adult) (pediatric); I87.2 Venous insufficiency (chronic) (peripheral)